=== PATIENT | female | born 1965 | race Caucasian/White ===

== ENCOUNTER → 2016-07-13 | Outpatient (CLI) | payer MEDICARE, MEDICAID ==
[~2016-07-13] MED LIST: ACET650S14 PR; AMIN30LI28 GT; ASCO500 GT; AUD NEB; BACIO TP; BACL10TA PO; BISA10S PR; BUDE0.5A3 NEB; CALC500O PEG; CALCIUM CARB SUSP PEG; DIGO125T GT; ESOM40SU GT; FAMO20 PO; FE PR; HYDR-3965 PO; HYDR25TA PO; IPRA3AMP4 NEB; LEVE500S2 GT; LEVO250 PEG; METO25 PO; MIRALAX PO; MULT-1203 PO; MULT240L12 GT; TIZA4TAB4 PO; VALP250S5 PEG
[2016-07-13 10:59] VITALS: BP 137/98
== END | disposition home or self-care (01) ==
LOC: SRCNTR 10:58
PROVIDERS: ATTEND Internal Medicine Critical Care Medicine
DX: I50.9 Heart failure, unspecified (principal); J18.9 Pneumonia, unspecified organism; G80.9 Cerebral palsy, unspecified; G82.50 Quadriplegia, unspecified; J45.21 Mild intermittent asthma with (acute) exacerbation; F73 Profound intellectual disabilities
CPT/HCPCS: G0463

== ENCOUNTER 2016-07-21 09:49 | Emergency (ER) | payer MEDICARE, MEDICAID ==
[~2016-07-21] VITALS: Ht 119.4 cm; Wt 45.0 kg
[~2016-07-21 09:49] MED LIST changes: -CALC500O PEG; -ESOM40SU GT; -FAMO20 PO; -HYDR-3965 PO; -LEVO250 PEG; -MIRALAX PO; -MULT240L12 GT; -TIZA4TAB4 PO
[2016-07-21] MEDS ORDERED: DIATRIZOATE MEGLU/SOD 660/100 MG/ML 120 ML BOTTLE ONE (11:53)
[2016-07-21 12:26] VITALS: BP 122/93
[2016-11-09] MEDS ORDERED: MULT240L12 GT (11:17)
[2016-11-09] MEDS ORDERED: TIZA4TAB4 PO (11:17)
[2016-11-09] MEDS ORDERED: FAMO20 PO (11:17)
[2016-11-09] MEDS ORDERED: MIRALAX PO (11:17)
== END 2016-07-21 13:29 | disposition home or self-care (01) ==
LOC: EMS 09:52
DX: K94.23 Gastrostomy malfunction (principal); Z86.73 Personal history of transient ischemic attack (TIA), and cerebral infarction without residual deficits; Z88.1 Allergy status to other antibiotic agents; Z88.6 Allergy status to analgesic agent; Z88.8 Allergy status to other drugs, medicaments and biological substances
CPT/HCPCS: 43760; 49450; 99283; Q9963

== ENCOUNTER → 2016-07-25 | Outpatient (CLI) | payer MEDICARE, MEDICAID ==
[~2016-07-25] MED LIST changes: +CALC500O PEG; +FAMO20 PO; +MIRALAX PO; +MULT240L12 GT; +TIZA4TAB4 PO
[2016-07-25 16:27] LABS: BASOPHILS % (AUTO) 0.4 % (0.0-2.0); EOSINOPHILS % (AUTO) 1.9 % (1.0-6.0); HEMATOCRIT 48.5 % (36-46); HEMOGLOBIN 16.1 g/dL (12.0-16.0); LYMPHOCYTES # (AUTO) 2.4 K/uL (1.0-4.8); LYMPHOCYTES % (AUTO) 16.6 % (22.0-44.0); MEAN CORPUSCULAR HEMOGLOBIN 32.3 pg (26.0-34.0); MEAN CORPUSCULAR HGB CONC 33.1 G/dL (31.0-37.0); MEAN CORPUSCULAR VOLUME 97 fL (80-100); MONOCYTES # (AUTO) 1.6 K/uL (0.1-1.0); MONOCYTES % (AUTO) 10.6 % (2.0-9.0); NEUTROPHILS # (AUTO) 10.4 K/uL (1.8-7.7); NEUTROPHILS % (AUTO) 70.5 % (40.0-70.0); PLATELET COUNT (AUTO) 215 K/uL (150-450); RED BLOOD CELL COUNT(AUTO) 4.98 MIL/uL (4.00-5.20); RED CELL DISTRIBUTION WIDTH 13.5 % (11.5-14.5); WHITE BLOOD COUNT (AUTO) 14.7 K/uL (4.5-11.0)
[2016-07-25 17:06] LABS: ALANINE AMINOTRANSFERASE 20 U/L (12-78); ALBUMIN 3.6 g/dL (3.4-5.0); ANION GAP 2 mmol/L (8-16); ASPARTATE AMINOTRANSFERASE 14 U/L (15-37); BILIRUBIN,TOTAL 0.6 mg/dL (0.1-1.0); CARBON DIOXIDE 31 mmol/L (22-29); CHLORIDE 95 mmol/L (98-107); CHOL/HDL RATIO 5.5 (3.9-5.7); CREATININE 0.51 mg/dL (0.60-1.30); DIGOXIN 0.76 ng/mL (0.90-2.00); GLOMERULAR FILTR. RATE CALC > 60 mL/min (>60); POTASSIUM 3.5 mmol/L (3.5-5.1); SODIUM SERUM 128 mmol/L (136-145); THYROID STIMULATING HORMONE 1.62 uIU/mL (0.36-3.74); TOTAL PROTEIN, SERUM 7.8 g/dL (6.4-8.2); UREA NITROGEN, BLOOD 18 mg/dL (7-18)
[2016-07-25 17:25] LABS: HEMOGLOBIN A1C 5.2 % (4.5-6.2)
== END | disposition home or self-care (01) ==
LOC: MSR 12:49
PROVIDERS: ATTEND Internal Medicine Cardiovascular Disease
DX: J18.9 Pneumonia, unspecified organism (principal); I10 Essential (primary) hypertension; I50.9 Heart failure, unspecified; R91.8 Other nonspecific abnormal finding of lung field; M41.80 Other forms of scoliosis, site unspecified
CPT/HCPCS: 82306; 83036; 84439; 84443

== ENCOUNTER → 2016-09-11 | Outpatient (CLI) | payer MEDICARE, MEDICAID ==
[2016-09-11 12:42] VITALS: BP 122/67
== END | disposition home or self-care (01) ==
LOC: SRCNTR 12:38
PROVIDERS: ATTEND Internal Medicine Critical Care Medicine
DX: J18.9 Pneumonia, unspecified organism (principal); G80.9 Cerebral palsy, unspecified; G82.50 Quadriplegia, unspecified; J45.21 Mild intermittent asthma with (acute) exacerbation; I50.9 Heart failure, unspecified; F73 Profound intellectual disabilities
CPT/HCPCS: G0463

== ENCOUNTER 2016-10-12 08:43 | Inpatient (IN) | payer MEDICARE, MEDICAID ==
[~2016-10-12] VITALS: Ht 121.9 cm; Wt 46.5 kg
[~2016-10-12 08:43] MED LIST changes: -CALC500O PEG; -FAMO20 PO; -MIRALAX PO; -MULT240L12 GT; -TIZA4TAB4 PO
[2016-10-12] MEDS ORDERED: MINERAL OIL 133 ML ENEMA PR ONE (09:15)
[2016-10-12] MEDS ORDERED: BARIUM SULFATE 0.1% SUSPENSION 450 ML BOTTLE GT ONE (09:15)
[2016-10-12 09:30] LABS: BASOPHILS # (AUTO) 0.01 K/uL (0.00-0.20); BASOPHILS % (AUTO) 0.1 % (0.0-2.0); EOSINOPHILS # (AUTO) 0.17 K/uL (0.00-0.70); EOSINOPHILS % (AUTO) 1.71 % (1.0-6.0); HEMATOCRIT 44.8 % (36-46); HEMOGLOBIN 14.8 g/dL (12.0-16.0); LYMPHOCYTES # (AUTO) 2.2 K/uL (1.0-4.8); LYMPHOCYTES % (AUTO) 21.6 % (22.0-44.0); MEAN CORPUSCULAR HEMOGLOBIN 31.9 pg (26.0-34.0); MEAN CORPUSCULAR VOLUME 97 fL (80-100); MONOCYTES # (AUTO) 1.5 K/uL (0.1-1.0); MONOCYTES % (AUTO) 14.2 % (2.0-9.0); NEUTROPHILS # (AUTO) 6.4 K/uL (1.8-7.7); NEUTROPHILS % (AUTO) 62.5 % (40.0-70.0); PLATELET COUNT (AUTO) 197 K/uL (150-450); RED BLOOD CELL COUNT(AUTO) 4.63 MIL/uL (4.00-5.20); RED CELL DISTRIBUTION WIDTH 13.8 % (11.5-14.5); WHITE BLOOD COUNT (AUTO) 10.3 K/uL (4.5-11.0)
[2016-10-12 09:39] LABS: ANION GAP 5 mmol/L (8-16); CALCIUM, TOTAL 9.3 mg/dL (8.8-10.5); CARBON DIOXIDE 35 mmol/L (22-29); CHLORIDE 102 mmol/L (98-107); CREATININE 0.48 mg/dL (0.60-1.30); GLOMERULAR FILTR. RATE CALC > 60 mL/min (>60); POTASSIUM 4.1 mmol/L (3.5-5.1); SODIUM SERUM 142 mmol/L (136-145); UREA NITROGEN, BLOOD 20 mg/dL (7-18)
[2016-10-12 09:44] LABS: ALANINE AMINOTRANSFERASE 30 U/L (12-78); ASPARTATE AMINOTRANSFERASE 27 U/L (15-37); BILIRUBIN,TOTAL 0.4 mg/dL (0.1-1.0)
[2016-10-12] MEDS ORDERED: IOVERSOL 350 MG/ML 100 ML VIAL ONE (11:05)
[2016-10-12] MEDS ORDERED: SODIUM CHLORIDE 0.9% 100 ML ONE (11:05)
[2016-10-12] MEDS ORDERED: ONDANSETRON HCL 4 MG/2 ML VIAL IVP PRN ×2 (13:15→15:15)
[2016-10-12] MEDS ORDERED: BISACODYL 10 MG RECTAL RECTAL SUPPOSITORY PR PRN (15:15)
[2016-10-12] MEDS ORDERED: ZOLPIDEM TARTRATE 5 MG TABLET PO PRN (15:15)
[2016-10-12] MEDS ORDERED: MAGNESIUM HYDROXIDE SUSPENSION 30 ML UDCUP PO PRN (15:15)
[2016-10-12] MEDS ORDERED: HYDROCODONE/ACETAMINOPHEN 5-325 MG TABLET PO PRN (15:15)
[2016-10-12] MEDS ORDERED: LABETALOL HCL 5 MG/ML 20 ML VIAL IVP PRN (15:30)
[2016-10-12 16:13] VITALS: BP 133/80
[2016-10-12] MEDS ORDERED: SODIUM CHLORIDE 0.9% 500 ML IV ONE (16:47)
[2016-10-12] MEDS: HEPARIN SODIUM,PORCINE 5,000 UNITS/ML VIAL SQ SCH ×2 (16:51→23:55)
[2016-10-12] MEDS: LevETIRAcetam 500 MG in DEXTROSE 5%-WATER 100 ML IV SCH (16:51)
[2016-10-12] MEDS ORDERED: PEG 3350/NA SULF,BICARB,CL/KCL 4000 ML SOLUTION PO ONE (17:00)
[2016-10-12 19:42] VITALS: BP 133/102
[2016-10-12] MEDS: DOCUSATE SODIUM 100 MG CAPSULE PO SCH (20:05)
[2016-10-12] MEDS: METOCLOPRAMIDE HCL 5 MG/ML 2 ML VIAL IVP SCH (20:05)
[2016-10-12] MEDS: BACITRACIN 28.4 GM OINTMENT TP SCH ×2 (20:06→21:00)
[2016-10-12] MEDS: MORPHINE SULFATE 2 MG/ML SYRINGE IVP PRN (21:08)
[2016-10-13] VITALS (7 sets, daily range): BP systolic 110–130; BP diastolic 69–90
[2016-10-13] MEDS: MORPHINE SULFATE 2 MG/ML SYRINGE IVP PRN ×2 (01:56→19:28)
[2016-10-13] MEDS: LevETIRAcetam 500 MG in DEXTROSE 5%-WATER 100 ML IV SCH ×2 (03:48→14:55)
[2016-10-13] MEDS: BACITRACIN 28.4 GM OINTMENT TP SCH ×2 (09:00→20:25)
[2016-10-13] MEDS ORDERED: PANTOPRAZOLE SODIUM 40 MG DR TABLET PO SCH (09:00)
[2016-10-13] MEDS: METOCLOPRAMIDE HCL 5 MG/ML 2 ML VIAL IVP SCH ×2 (09:03→20:34)
[2016-10-13] MEDS: HEPARIN SODIUM,PORCINE 5,000 UNITS/ML VIAL SQ SCH ×3 (09:03→23:44)
[2016-10-13] MEDS: DOCUSATE SODIUM 100 MG CAPSULE PO SCH ×2 (09:03→20:34)
[2016-10-13] MEDS: DIGOXIN 250 MCG/ML 2 ML AMP IVP SCH (09:04)
[2016-10-13] MEDS: BISACODYL 10 MG RECTAL RECTAL SUPPOSITORY PR SCH (09:11)
[2016-10-13] MEDS ORDERED: SODIUM CHLORIDE 0.9% 1,000 ML IV SCH (12:30)
[2016-10-13] MEDS ORDERED: CALC500O PEG (12:31)
[2016-10-13] MEDS: ACETAMINOPHEN 325 MG TABLET PO PRN (23:44)
[2016-10-14] MEDS ORDERED: 0.9% SODIUM CHLORIDE 5 ML NEB SOLUTION NEB ONE (00:14)
[2016-10-14] MEDS: ALBUTEROL SULFATE 2.5 MG/0.5 ML NEB SOLUTION NEB PRN (00:15)
[2016-10-14] MEDS ORDERED: FUROSEMIDE 40 MG/4 ML VIAL IVP ONE (01:15)
[2016-10-14] MEDS: LEVOFLOXACIN 500 MG/D5% WATER 100 ML IV SCH (01:59)
[2016-10-14 04:25] LABS: BASOPHILS % (AUTO) 0.1 % (0.0-2.0); EOSINOPHILS % (AUTO) 0.3 % (1.0-6.0); HEMATOCRIT 46.6 % (36-46); HEMOGLOBIN 15.4 g/dL (12.0-16.0); LYMPHOCYTES # (AUTO) 1.7 K/uL (1.0-4.8); LYMPHOCYTES % (AUTO) 8.4 % (22.0-44.0); MEAN CORPUSCULAR HEMOGLOBIN 31.8 pg (26.0-34.0); MEAN CORPUSCULAR HGB CONC 32.9 G/dL (31.0-37.0); MEAN CORPUSCULAR VOLUME 96 fL (80-100); MONOCYTES # (AUTO) 2.5 K/uL (0.1-1.0); MONOCYTES % (AUTO) 12.2 % (2.0-9.0); NEUTROPHILS # (AUTO) 16.3 K/uL (1.8-7.7); PLATELET COUNT (AUTO) 216 K/uL (150-450); RED BLOOD CELL COUNT(AUTO) 4.83 MIL/uL (4.00-5.20); RED CELL DISTRIBUTION WIDTH 13.1 % (11.5-14.5); WHITE BLOOD COUNT (AUTO) 20.6 K/uL (4.5-11.0)
[2016-10-14 04:27] LABS: ANION GAP 8 mmol/L (8-16); CALCIUM, TOTAL 9.5 mg/dL (8.8-10.5); CARBON DIOXIDE 31 mmol/L (22-29); CHLORIDE 100 mmol/L (98-107); CREATININE 0.67 mg/dL (0.60-1.30); GLOMERULAR FILTR. RATE CALC > 60 mL/min (>60); SODIUM SERUM 139 mmol/L (136-145); UREA NITROGEN, BLOOD 8 mg/dL (7-18)
[2016-10-14 04:32] VITALS: BP 133/91
[2016-10-14] MEDS: LevETIRAcetam 500 MG in DEXTROSE 5%-WATER 100 ML IV SCH ×2 (04:32→15:46)
[2016-10-14 04:36] LABS: POTASSIUM 2.8 mmol/L (3.5-5.1)
[2016-10-14] MEDS ORDERED: POTASSIUM CHL 10 MEQ/WATER 50 ML IV PRN (05:00)
[2016-10-14] MEDS ORDERED: POTASSIUM CHLORIDE 10% 40 MEQ/30 ML LIQUID UDCUP PEG PRN (05:00)
[2016-10-14] MEDS ORDERED: POTASSIUM CHLORIDE 10% 40 MEQ/30 ML LIQUID UDCUP PEG ONE (05:00)
[2016-10-14] MEDS ORDERED: 0.9% SODIUM CHLORIDE 10 ML SYRINGE IVP PRN (06:30)
[2016-10-14 07:53] VITALS: BP 130/86
[2016-10-14] MEDS: DIGOXIN 250 MCG/ML 2 ML AMP IVP SCH (08:18)
[2016-10-14] MEDS: METOCLOPRAMIDE HCL 5 MG/ML 2 ML VIAL IVP SCH ×2 (08:19→21:37)
[2016-10-14] MEDS: BACITRACIN 28.4 GM OINTMENT TP SCH ×2 (08:19→21:36)
[2016-10-14] MEDS: HEPARIN SODIUM,PORCINE 5,000 UNITS/ML VIAL SQ SCH ×2 (08:19→15:39)
[2016-10-14] MEDS: DOCUSATE SODIUM 100 MG CAPSULE PEG SCH ×2 (09:14→21:36)
[2016-10-14] MEDS: PANTOPRAZOLE SODIUM 40 MG/VIAL IVP SCH (09:14)
[2016-10-14] MEDS: CLINDAMYCIN PHOSPHATE 450 MG in DEXTROSE 5%-WATER 50 ML IV SCH ×2 (10:26→17:02)
[2016-10-14 11:20] VITALS: BP 135/92
[2016-10-14 12:15] LABS: ABG A-A DIFF O2 93.5 mmHg (10-20.0); ABG BASE EXCESS 7.4 mmol/L (-2.0-3.0); ABG HCO3 29.9 mmol/L (22.0-26.0); ABG OXYHEMOGLOBIN 93.9 % (94.0-100.0); ABG PCO2 49 mmHg (35-45); ABG PH 7.427 (7.35-7.450); TEMPERATURE, FAHRENHEIT, BG 99.2 FAHREN (96.0-98.6)
[2016-10-14 12:16] LABS: ALLEN TEST, BLOOD GAS Positive
[2016-10-14] MEDS: BISACODYL 10 MG RECTAL RECTAL SUPPOSITORY PR SCH (12:34)
[2016-10-14 13:25] LABS: APPEARANCE,URINE TURBID (CLEAR); GLUCOSE, URINE (UA) NEGATIVE (NEGATIVE); KETONES,URINE NEGATIVE (NEGATIVE); LEUKOCYTE ESTERASE ,URINE LARGE (NEGATIVE); OCCULT BLOOD,URINE LARGE (NEGATIVE); PH,URINE 5.5 (5.0-8.0); PROTEIN,URINE SEE CONFIRM (NEGATIVE)
[2016-10-14 13:50] LABS: ADD UA MICROSCOPIC YES
[2016-10-14 14:01] LABS: SULFOSALICYLIC ACID,URINE 3+ (Negative); WBC,URINE Full Field /HPF (0-5)
[2016-10-14 14:02] LABS: SQUAMOUS EPITHELIAL CELL,UR Few /LPF (None Seen)
[2016-10-14 15:36] VITALS: BP 123/83
[2016-10-14] MEDS: SODIUM CHLORIDE 0.9% 1,000 ML IV SCH (15:59)
[2016-10-14 19:26] VITALS: BP 150/93
[2016-10-14] MEDS: METOPROLOL TARTRATE 25 MG TABLET PO SCH (21:36)
[2016-10-14] MEDS: MetroNIDAZOLE 500 MG/NACL 100 ML IV SCH (22:56)
[2016-10-14 23:48] VITALS: BP 135/87
[2016-10-15] MEDS: HEPARIN SODIUM,PORCINE 5,000 UNITS/ML VIAL SQ SCH ×4 (00:30→23:40)
[2016-10-15] MEDS: LEVOFLOXACIN 500 MG/D5% WATER 100 ML IV SCH (01:21)
[2016-10-15] MEDS: LevETIRAcetam 500 MG in DEXTROSE 5%-WATER 100 ML IV SCH ×2 (04:06→15:23)
[2016-10-15 05:13] VITALS: BP 138/90
[2016-10-15] MEDS: MetroNIDAZOLE 500 MG/NACL 100 ML IV SCH ×3 (05:22→22:07)
[2016-10-15 06:42] LABS: ANION GAP 7 mmol/L (8-16); CALCIUM, TOTAL 9.1 mg/dL (8.8-10.5); CARBON DIOXIDE 33 mmol/L (22-29); CHLORIDE 103 mmol/L (98-107); CREATININE 0.55 mg/dL (0.60-1.30); GLOMERULAR FILTR. RATE CALC > 60 mL/min (>60); POTASSIUM 3.8 mmol/L (3.5-5.1); SODIUM SERUM 143 mmol/L (136-145); UREA NITROGEN, BLOOD 13 mg/dL (7-18)
[2016-10-15 06:44] LABS: BASOPHILS % (AUTO) 0.2 % (0.0-2.0); EOSINOPHILS % (AUTO) 1.8 % (1.0-6.0); HEMATOCRIT 45.2 % (36-46); HEMOGLOBIN 14.8 g/dL (12.0-16.0); LYMPHOCYTES % (AUTO) 9.1 % (22.0-44.0); MEAN CORPUSCULAR HGB CONC 32.9 G/dL (31.0-37.0); MEAN CORPUSCULAR VOLUME 97 fL (80-100); MONOCYTES # (AUTO) 1.7 K/uL (0.1-1.0); MONOCYTES % (AUTO) 14.7 % (2.0-9.0); NEUTROPHILS # (AUTO) 8.5 K/uL (1.8-7.7); NEUTROPHILS % (AUTO) 74.2 % (40.0-70.0); PLATELET COUNT (AUTO) 183 K/uL (150-450); RED BLOOD CELL COUNT(AUTO) 4.64 MIL/uL (4.00-5.20); RED CELL DISTRIBUTION WIDTH 13.2 % (11.5-14.5); WHITE BLOOD COUNT (AUTO) 11.5 K/uL (4.5-11.0)
[2016-10-15 08:18] VITALS: BP 138/97
[2016-10-15] MEDS: METOCLOPRAMIDE HCL 5 MG/ML 2 ML VIAL IVP SCH ×2 (08:22→21:04)
[2016-10-15] MEDS: PANTOPRAZOLE SODIUM 40 MG/VIAL IVP SCH (08:22)
[2016-10-15] MEDS: BISACODYL 10 MG RECTAL RECTAL SUPPOSITORY PR SCH (08:23)
[2016-10-15] MEDS: DOCUSATE SODIUM 100 MG CAPSULE PEG SCH ×2 (08:23→21:00)
[2016-10-15] MEDS: BACITRACIN 28.4 GM OINTMENT TP SCH ×2 (08:23→21:04)
[2016-10-15] MEDS: METOPROLOL TARTRATE 25 MG TABLET PO SCH ×2 (08:23→21:03)
[2016-10-15] MEDS: DIGOXIN 250 MCG/ML 2 ML AMP IVP SCH (08:37)
[2016-10-15] MEDS: SODIUM CHLORIDE 0.9% 1,000 ML IV SCH (08:41)
[2016-10-15 10:17] LABS: ABG A-A DIFF O2 72.2 mmHg (10-20.0); ABG BASE EXCESS 3.2 mmol/L (-2.0-3.0); ABG HCO3 26.7 mmol/L (22.0-26.0); ABG OXYHEMOGLOBIN 93.1 % (94.0-100.0); ABG PCO2 45 mmHg (35-45); ABG PH 7.406 (7.35-7.450)
[2016-10-15 10:18] LABS: ALLEN TEST, BLOOD GAS Positive; IPAP, BG 10 cm H2O
[2016-10-15 11:02] VITALS: BP 129/88
[2016-10-15 15:39] VITALS: BP 136/84
[2016-10-15] MEDS ORDERED: FUROSEMIDE 20 MG/2 ML VIAL IVP ONE (17:15)
[2016-10-15 19:37] VITALS: BP 144/94
[2016-10-16] VITALS (7 sets, daily range): BP systolic 138–162; BP diastolic 76–98
[2016-10-16] MEDS: LEVOFLOXACIN 500 MG/D5% WATER 100 ML IV SCH (01:48)
[2016-10-16] MEDS: LevETIRAcetam 500 MG in DEXTROSE 5%-WATER 100 ML IV SCH ×2 (03:13→16:18)
[2016-10-16] MEDS: MetroNIDAZOLE 500 MG/NACL 100 ML IV SCH ×3 (05:30→22:02)
[2016-10-16 08:51] LABS: BASOPHILS % (AUTO) 0.5 % (0.0-2.0); EOSINOPHILS % (AUTO) 2.1 % (1.0-6.0); HEMATOCRIT 46.4 % (36-46); HEMOGLOBIN 15.3 g/dL (12.0-16.0); LYMPHOCYTES # (AUTO) 1.6 K/uL (1.0-4.8); LYMPHOCYTES % (AUTO) 10.9 % (22.0-44.0); MEAN CORPUSCULAR HEMOGLOBIN 31.8 pg (26.0-34.0); MEAN CORPUSCULAR HGB CONC 32.9 G/dL (31.0-37.0); MEAN CORPUSCULAR VOLUME 97 fL (80-100); MONOCYTES # (AUTO) 1.7 K/uL (0.1-1.0); MONOCYTES % (AUTO) 11.6 % (2.0-9.0); NEUTROPHILS # (AUTO) 11.1 K/uL (1.8-7.7); NEUTROPHILS % (AUTO) 74.9 % (40.0-70.0); PLATELET COUNT (AUTO) 220 K/uL (150-450); RED CELL DISTRIBUTION WIDTH 13.1 % (11.5-14.5); WHITE BLOOD COUNT (AUTO) 14.9 K/uL (4.5-11.0)
[2016-10-16 09:00] LABS: ANION GAP 9 mmol/L (8-16); CALCIUM, TOTAL 9.5 mg/dL (8.8-10.5); CARBON DIOXIDE 31 mmol/L (22-29); CHLORIDE 100 mmol/L (98-107); CREATININE 0.57 mg/dL (0.60-1.30); GLOMERULAR FILTR. RATE CALC > 60 mL/min (>60); POTASSIUM 3.7 mmol/L (3.5-5.1); SODIUM SERUM 140 mmol/L (136-145); UREA NITROGEN, BLOOD 13 mg/dL (7-18)
[2016-10-16] MEDS: BISACODYL 10 MG RECTAL RECTAL SUPPOSITORY PR SCH (09:00)
[2016-10-16] MEDS: DOCUSATE SODIUM 100 MG CAPSULE PEG SCH ×2 (09:09→20:52)
[2016-10-16] MEDS: METOPROLOL TARTRATE 25 MG TABLET PO SCH ×2 (09:09→20:52)
[2016-10-16] MEDS: DIGOXIN 250 MCG/ML 2 ML AMP IVP SCH (09:10)
[2016-10-16] MEDS: ACETAMINOPHEN 325 MG TABLET PO PRN (09:16)
[2016-10-16] MEDS: METOCLOPRAMIDE HCL 5 MG/ML 2 ML VIAL IVP SCH ×2 (09:19→20:52)
[2016-10-16] MEDS: PANTOPRAZOLE SODIUM 40 MG/VIAL IVP SCH (09:23)
[2016-10-16] MEDS: HEPARIN SODIUM,PORCINE 5,000 UNITS/ML VIAL SQ SCH ×2 (09:24→16:18)
[2016-10-16] MEDS: BACITRACIN 28.4 GM OINTMENT TP SCH ×2 (09:25→20:52)
[2016-10-16 12:14] LABS: ABG A-A DIFF O2 63.8 mmHg (10-20.0); ABG BASE EXCESS 3.1 mmol/L (-2.0-3.0); ABG OXYHEMOGLOBIN 94.4 % (94.0-100.0); ABG PCO2 42 mmHg (35-45); ABG PH 7.435 (7.35-7.450); TEMPERATURE, FAHRENHEIT, BG 99.4 FAHREN (96.0-98.6)
[2016-10-16 12:16] LABS: ALLEN TEST, BLOOD GAS Positive
[2016-10-16] MEDS ORDERED: SODIUM CHLORIDE 0.9% 0 ML ONE (14:53)
[2016-10-16] MEDS: BUDESONIDE 0.5 MG/2 ML NEB SOLUTION NEB SCH (19:36)
[2016-10-16] MEDS: TRIMETH GT SCH (20:51)
[2016-10-16] MEDS: UDCUP GT SCH (20:51)
[2016-10-16] MEDS: SULFAMETHOX GT SCH (20:51)
[2016-10-16] MEDS ORDERED: SODIUM CHLORIDE 0.9% 100 ML ONE (21:57)
[2016-10-17] MEDS: HEPARIN SODIUM,PORCINE 5,000 UNITS/ML VIAL SQ SCH ×3 (01:02→16:48)
[2016-10-17] MEDS: LEVOFLOXACIN 500 MG/D5% WATER 100 ML IV SCH (02:10)
[2016-10-17] MEDS ORDERED: 0.9% SODIUM CHLORIDE 5 ML NEB SOLUTION NEB ONE (02:12)
[2016-10-17] MEDS: ALBUTEROL SULFATE 2.5 MG/0.5 ML NEB SOLUTION NEB PRN ×2 (02:14→08:26)
[2016-10-17] MEDS: LevETIRAcetam 500 MG in DEXTROSE 5%-WATER 100 ML IV SCH ×2 (04:11→16:48)
[2016-10-17 04:56] VITALS: BP 132/72
[2016-10-17] MEDS ORDERED: SODIUM CHLORIDE 0.9% 100 ML ONE (05:23)
[2016-10-17] MEDS: MetroNIDAZOLE 500 MG/NACL 100 ML IV SCH ×2 (05:42→14:36)
[2016-10-17 06:58] LABS: BASOPHILS % (AUTO) 0.3 % (0.0-2.0); EOSINOPHILS % (AUTO) 2.7 % (1.0-6.0); HEMATOCRIT 43.5 % (36-46); HEMOGLOBIN 14.4 g/dL (12.0-16.0); LYMPHOCYTES # (AUTO) 1.5 K/uL (1.0-4.8); LYMPHOCYTES % (AUTO) 10.4 % (22.0-44.0); MEAN CORPUSCULAR HEMOGLOBIN 31.9 pg (26.0-34.0); MEAN CORPUSCULAR HGB CONC 33.1 G/dL (31.0-37.0); MEAN CORPUSCULAR VOLUME 96 fL (80-100); MONOCYTES # (AUTO) 1.6 K/uL (0.1-1.0); MONOCYTES % (AUTO) 11.1 % (2.0-9.0); NEUTROPHILS # (AUTO) 11.1 K/uL (1.8-7.7); NEUTROPHILS % (AUTO) 75.5 % (40.0-70.0); PLATELET COUNT (AUTO) 208 K/uL (150-450); RED BLOOD CELL COUNT(AUTO) 4.52 MIL/uL (4.00-5.20); RED CELL DISTRIBUTION WIDTH 13.4 % (11.5-14.5); WHITE BLOOD COUNT (AUTO) 14.6 K/uL (4.5-11.0)
[2016-10-17 07:27] VITALS: BP 137/77
[2016-10-17 07:44] LABS: ANION GAP 7 mmol/L (8-16); CALCIUM, TOTAL 9.2 mg/dL (8.8-10.5); CARBON DIOXIDE 30 mmol/L (22-29); CHLORIDE 101 mmol/L (98-107); CREATININE 0.54 mg/dL (0.60-1.30); GLOMERULAR FILTR. RATE CALC > 60 mL/min (>60); POTASSIUM 4.2 mmol/L (3.5-5.1); SODIUM SERUM 138 mmol/L (136-145); UREA NITROGEN, BLOOD 10 mg/dL (7-18)
[2016-10-17] MEDS: BUDESONIDE 0.5 MG/2 ML NEB SOLUTION NEB SCH (08:26)
[2016-10-17] MEDS: BISACODYL 10 MG RECTAL RECTAL SUPPOSITORY PR SCH (09:00)
[2016-10-17] MEDS: UDCUP GT SCH (09:11)
[2016-10-17] MEDS: TRIMETH GT SCH (09:11)
[2016-10-17] MEDS: SULFAMETHOX GT SCH (09:11)
[2016-10-17] MEDS: DIGOXIN 250 MCG/ML 2 ML AMP IVP SCH (09:11)
[2016-10-17] MEDS: BACITRACIN 28.4 GM OINTMENT TP SCH (09:12)
[2016-10-17] MEDS: PANTOPRAZOLE SODIUM 40 MG/VIAL IVP SCH (09:12)
[2016-10-17] MEDS: DOCUSATE SODIUM 100 MG CAPSULE PEG SCH (09:12)
[2016-10-17] MEDS: METOPROLOL TARTRATE 25 MG TABLET PO SCH (09:12)
[2016-10-17] MEDS: METOCLOPRAMIDE HCL 5 MG/ML 2 ML VIAL IVP SCH (09:12)
[2016-10-17 10:45] LABS: ABG BASE EXCESS 1.4 mmol/L (-2.0-3.0); ABG HCO3 25.2 mmol/L (22.0-26.0); ABG OXYHEMOGLOBIN 93.4 % (94.0-100.0); ABG PCO2 45 mmHg (35-45); ABG PH 7.387 (7.35-7.450)
[2016-10-17 10:47] LABS: ALLEN TEST, BLOOD GAS Positive
[2016-10-17 11:06] VITALS: BP 124/78
[2016-10-17 15:01] VITALS: BP 132/78
== END 2016-10-17 17:35 | DRG 871 ==
LOC: EMS 08:46 → 6N 13:42 → 5N 10-14 04:06
PROVIDERS: ADMIT Internal Medicine; ATTEND Internal Medicine
PROC: 5A09457 Assistance with Respiratory Ventilation, 24-96 Consecutive Hours, Continuous Positive Airway Pressure (ICD-10-PCS; principal; 2016-10-14)
DX: A41.9 Sepsis, unspecified organism (principal); G80.0 Spastic quadriplegic cerebral palsy; J69.0 Pneumonitis due to inhalation of food and vomit; J96.02 Acute respiratory failure with hypercapnia; K56.7 Ileus, unspecified; E44.0 Moderate protein-calorie malnutrition; F73 Profound intellectual disabilities; N39.0 Urinary tract infection, site not specified; I50.30 Unspecified diastolic (congestive) heart failure; I48.2 Chronic atrial fibrillation; G40.909 Epilepsy, unspecified, not intractable, without status epilepticus; K56.41 Fecal impaction; B96.20 Unspecified Escherichia coli [E. coli] as the cause of diseases classified elsewhere; B96.89 Other specified bacterial agents as the cause of diseases classified elsewhere; G40.409 Other generalized epilepsy and epileptic syndromes, not intractable, without status epilepticus; I11.0 Hypertensive heart disease with heart failure; J45.909 Unspecified asthma, uncomplicated; M41.9 Scoliosis, unspecified; Z79.1 Long term (current) use of non-steroidal anti-inflammatories (NSAID); Z79.51 Long term (current) use of inhaled steroids; Z79.899 Other long term (current) drug therapy; Z16.29 Resistance to other single specified antibiotic; Z88.0 Allergy status to penicillin; Z88.1 Allergy status to other antibiotic agents; Z88.6 Allergy status to analgesic agent; Z88.8 Allergy status to other drugs, medicaments and biological substances; Z68.31 Body mass index [BMI] 31.0-31.9, adult; Z86.73 Personal history of transient ischemic attack (TIA), and cerebral infarction without residual deficits; Z93.1 Gastrostomy status
CPT/HCPCS: 71250; 74000; 74177; 82805; 84132; 87040; 87081; 87086; 93005; 93306; 94640; 94660; 99285; C9113; J0712; J1160; J1644; J1940; J1956; J2270; J2765; J3490; J7030; J7040; J7050; J7060; S0077

== ENCOUNTER 2016-10-27 09:58 | Emergency (ER) | payer MEDICARE, MEDICAID ==
[~2016-10-27] VITALS: Ht 121.9 cm; Wt 43.2 kg
[~2016-10-27 09:58] MED LIST changes: +CALC500O PEG; -CALCIUM CARB SUSP PEG
[2016-10-27] MEDS ORDERED: SODIUM CHLORIDE 0.9% 1,000 ML IV ONE (11:45)
[2016-10-27 12:13] LABS: BASOPHILS # (AUTO) 0.03 K/uL (0.00-0.20); BASOPHILS % (AUTO) 0.2 % (0.0-2.0); EOSINOPHILS % (AUTO) 1.58 % (1.0-6.0); HEMOGLOBIN 15.7 g/dL (12.0-16.0); LYMPHOCYTES # (AUTO) 1.9 K/uL (1.0-4.8); LYMPHOCYTES % (AUTO) 14.8 % (22.0-44.0); MEAN CORPUSCULAR HEMOGLOBIN 32.3 pg (26.0-34.0); MEAN CORPUSCULAR HGB CONC 32.7 G/dL (31.0-37.0); MEAN CORPUSCULAR VOLUME 99 fL (80-100); MONOCYTES % (AUTO) 7.5 % (2.0-9.0); NEUTROPHILS # (AUTO) 9.7 K/uL (1.8-7.7); NEUTROPHILS % (AUTO) 75.9 % (40.0-70.0); PLATELET COUNT (AUTO) 279 K/uL (150-450); RED BLOOD CELL COUNT(AUTO) 4.85 MIL/uL (4.00-5.20); WHITE BLOOD COUNT (AUTO) 12.8 K/uL (4.5-11.0)
[2016-10-27 12:22] LABS: ANION GAP 3 mmol/L (8-16); CALCIUM, TOTAL 10.4 mg/dL (8.8-10.5); CARBON DIOXIDE 35 mmol/L (22-29); CHLORIDE 102 mmol/L (98-107); CREATININE 0.49 mg/dL (0.60-1.30); GLOMERULAR FILTR. RATE CALC > 60 mL/min (>60); POTASSIUM 3.8 mmol/L (3.5-5.1); SODIUM SERUM 140 mmol/L (136-145); UREA NITROGEN, BLOOD 16 mg/dL (7-18)
[2016-10-27] MEDS ORDERED: DIATRIZOATE MEGLU/SOD 660/100 MG/ML 120 ML BOTTLE ONE (12:26)
[2016-10-27 12:27] LABS: ALANINE AMINOTRANSFERASE 26 U/L (12-78); ALBUMIN 3.6 g/dL (3.4-5.0); ASPARTATE AMINOTRANSFERASE 18 U/L (15-37); BILIRUBIN,TOTAL 0.4 mg/dL (0.1-1.0); TOTAL PROTEIN, SERUM 7.8 g/dL (6.4-8.2)
[2016-10-27 12:28] LABS: PROTHROMBIN TIME 10.5 SEC (9.4-11.6)
[2016-10-27 13:45] VITALS: BP 145/55
== END 2016-10-27 14:35 | disposition home or self-care (01) ==
LOC: EMS 10:01
DX: Z43.1 Encounter for attention to gastrostomy (principal); G82.50 Quadriplegia, unspecified; G40.909 Epilepsy, unspecified, not intractable, without status epilepticus; Z88.8 Allergy status to other drugs, medicaments and biological substances; Z88.6 Allergy status to analgesic agent; Z88.1 Allergy status to other antibiotic agents
CPT/HCPCS: 36415; 49450; 80053; 85025; 85610; 96360; 96361; 99285; J7030; Q9963

== ENCOUNTER → 2016-11-09 | Outpatient (CLI) | payer MEDICARE, MEDICAID ==
[~2016-11-09] MED LIST changes: +FAMO20 PO; +MIRALAX PO; +MULT240L12 GT; +TIZA4TAB4 PO
[2016-11-09 11:06] VITALS: BP 123/78
== END | disposition home or self-care (01) ==
LOC: SRCNTR 10:56
PROVIDERS: ATTEND Internal Medicine Critical Care Medicine
DX: J18.9 Pneumonia, unspecified organism (principal); I50.30 Unspecified diastolic (congestive) heart failure; G80.9 Cerebral palsy, unspecified; J45.21 Mild intermittent asthma with (acute) exacerbation; F73 Profound intellectual disabilities; G40.409 Other generalized epilepsy and epileptic syndromes, not intractable, without status epilepticus; H54.8 Legal blindness, as defined in USA; Q02 Microcephaly
CPT/HCPCS: G0463

== ENCOUNTER → 2016-12-04 | Outpatient (CLI) | payer MEDICARE, MEDICAID | END | disposition home or self-care (01) | LOC: RADPV 09:02 | PROVIDERS: ATTEND Family Medicine | DX: Z13.820 Encounter for screening for osteoporosis (principal); M85.88 Other specified disorders of bone density and structure, other site | CPT/HCPCS: 77080 ==

== ENCOUNTER 2017-01-26 14:23 | Emergency (ER) | payer MEDICARE, MEDICAID ==
[~2017-01-26] VITALS: Ht 147.3 cm; Wt 63.0 kg
[2017-01-26] MEDS ORDERED: DIATRIZOATE MEGLU/SOD 660/100 MG/ML 120 ML BOTTLE ONE (15:01)
[2017-01-26 20:45] VITALS: BP 114/85
== END 2017-01-26 21:01 | disposition home or self-care (01) ==
LOC: EMS 14:26
DX: Z43.1 Encounter for attention to gastrostomy (principal); K43.9 Ventral hernia without obstruction or gangrene; Z86.73 Personal history of transient ischemic attack (TIA), and cerebral infarction without residual deficits; Z88.1 Allergy status to other antibiotic agents; Z88.6 Allergy status to analgesic agent
CPT/HCPCS: 49440; 99284; Q9963

== ENCOUNTER 2017-03-12 16:47 | Inpatient (IN) | payer MEDICARE, MEDICAID ==
[~2017-03-12] VITALS: Ht 127 cm; Wt 46.8 kg
[2017-03-12] MEDS ORDERED: 0.9% SODIUM CHLORIDE 10 ML SYRINGE IVP PRN ×2 (17:15→20:30)
[2017-03-12] MEDS ORDERED: POTA20IV GT (17:31)
[2017-03-12] MEDS ORDERED: MOM30 PO (17:31)
[2017-03-12] MEDS ORDERED: MULT-723 GT (17:31)
[2017-03-12] MEDS ORDERED: FLUT16H NASAL (17:31)
[2017-03-12] MEDS ORDERED: GUAIFDM PO (17:31)
[2017-03-12] MEDS ORDERED: OXYM30SP27 NASAL (17:31)
[2017-03-12] MEDS ORDERED: VITAD1000 PO (17:31)
[2017-03-12] MEDS ORDERED: DIPH25 PO (17:31)
[2017-03-12] MEDS ORDERED: OLOP2.5D OU (17:31)
[2017-03-12 17:48] LABS: BASOPHILS % (AUTO) 0.4 % (0.0-2.0); EOSINOPHILS % (AUTO) 1.3 % (1.0-6.0); HEMATOCRIT 43.2 % (36-46); HEMOGLOBIN 14.8 g/dL (12.0-16.0); LYMPHOCYTES # (AUTO) 1.5 K/uL (1.0-4.8); LYMPHOCYTES % (AUTO) 10.7 % (22.0-44.0); MEAN CORPUSCULAR HEMOGLOBIN 33.1 pg (26.0-34.0); MEAN CORPUSCULAR HGB CONC 34.3 G/dL (31.0-37.0); MEAN CORPUSCULAR VOLUME 96 fL (80-100); MONOCYTES # (AUTO) 1.8 K/uL (0.1-1.0); MONOCYTES % (AUTO) 12.6 % (2.0-9.0); NEUTROPHILS # (AUTO) 10.6 K/uL (1.8-7.7); PLATELET COUNT (AUTO) 165 K/uL (150-450); RED BLOOD CELL COUNT(AUTO) 4.48 MIL/uL (4.00-5.20); RED CELL DISTRIBUTION WIDTH 13.2 % (11.5-14.5); WHITE BLOOD COUNT (AUTO) 14.2 K/uL (4.5-11.0)
[2017-03-12 17:57] LABS: ANION GAP 7 mmol/L (8-16); CALCIUM, TOTAL 10.1 mg/dL (8.8-10.5); CARBON DIOXIDE 33 mmol/L (22-29); CHLORIDE 99 mmol/L (98-107); GLOMERULAR FILTR. RATE CALC > 60 mL/min (>60); POTASSIUM 3.2 mmol/L (3.5-5.1); SODIUM SERUM 139 mmol/L (136-145); UREA NITROGEN, BLOOD 17 mg/dL (7-18)
[2017-03-12 17:58] LABS: PROTHROMBIN TIME 10.7 SEC (9.4-11.6)
[2017-03-12 18:13] LABS: B-TYPE NATRIURETIC PEPTIDE 7 pg/mL (0-100)
[2017-03-12 18:22] LABS: ALANINE AMINOTRANSFERASE 21 U/L (12-78); ALBUMIN 3.6 g/dL (3.4-5.0); ASPARTATE AMINOTRANSFERASE 22 U/L (15-37); BILIRUBIN,TOTAL 0.3 mg/dL (0.1-1.0); CREATINE KINASE MB 1.4 ng/mL (0-5); CREATINE KINASE, TOTAL 194 U/L (26-192); TOTAL PROTEIN, SERUM 8.1 g/dL (6.4-8.2)
[2017-03-12] MEDS ORDERED: MethylPREDNISolone SOD SUCC 125 MG/2 ML VIAL IVP ONE (18:30)
[2017-03-12] MEDS ORDERED: ALBUTEROL SULFATE 2.5 MG/0.5 ML NEB SOLUTION NEB ONE (18:30)
[2017-03-12] MEDS ORDERED: IPRATROPIUM BROMIDE 0.5 MG/2.5 ML NEB SOLUTION NEB ONE (18:30)
[2017-03-12 19:12] LABS: GLUCOSE, URINE (UA) NEGATIVE (NEGATIVE); KETONES,URINE NEGATIVE (NEGATIVE); LEUKOCYTE ESTERASE ,URINE LARGE (NEGATIVE); OCCULT BLOOD,URINE LARGE (NEGATIVE); PROTEIN,URINE TRACE (NEGATIVE)
[2017-03-12 19:13] LABS: ADD UA MICROSCOPIC YES; APPEARANCE,URINE CLOUDY (CLEAR)
[2017-03-12 19:22] LABS: SQUAMOUS EPITHELIAL CELL,UR Few /LPF (None Seen); WBC,URINE >100 /HPF (0-5)
[2017-03-12] MEDS ORDERED: ACETAMINOPHEN 325 MG TABLET PO PRN ×2 (20:30→21:45)
[2017-03-12] MEDS ORDERED: ONDANSETRON HCL 4 MG/2 ML VIAL IVP PRN (20:30)
[2017-03-12] MEDS ORDERED: VANCOMYCIN HCL 1 GM/D5% WATER 200 ML IV ONE (20:30)
[2017-03-12] MEDS ORDERED: LEVOFLOXACIN 500 MG/D5% WATER 100 ML IV ONE (20:30)
[2017-03-12] MEDS ORDERED: POTASSIUM CHLORIDE 20 MEQ ER TABLET PO ONE (21:30)
[2017-03-12] MEDS ORDERED: MAGNESIUM HYDROXIDE SUSPENSION 30 ML UDCUP PO PRN (21:45)
[2017-03-12] MEDS ORDERED: SODIUM CHLORIDE 0.9% 1,000 ML IV ONE (21:45)
[2017-03-12] MEDS ORDERED: BISACODYL 10 MG RECTAL RECTAL SUPPOSITORY PR PRN (21:45)
[2017-03-12] MEDS ORDERED: DEXTROSE 50%-WATER 25 GM/50 ML SYRINGE IVP PRN (22:00)
[2017-03-12] MEDS ORDERED: POTASSIUM CHL 10 MEQ/WATER 50 ML IV PRN (22:00)
[2017-03-12] MEDS ORDERED: POTASSIUM CHLORIDE 20 MEQ ER TABLET PO PRN (22:00)
[2017-03-12] MEDS ORDERED: LORazepam 2 MG/ML VIAL IVP PRN (22:00)
[2017-03-12 22:09] VITALS: BP 131/88
[2017-03-12] MEDS ORDERED: SODIUM CHLORIDE 0.9% 250 ML IV ONE (22:09)
[2017-03-12] MEDS ORDERED: POTASSIUM CHLORIDE 10% 40 MEQ/30 ML LIQUID UDCUP PO ONE (22:15)
[2017-03-12] MEDS: METOPROLOL TARTRATE 25 MG TABLET PO SCH (22:27)
[2017-03-12] MEDS ORDERED: 0.9% SODIUM CHLORIDE 5 ML NEB SOLUTION NEB ONE (22:43)
[2017-03-12] MEDS: ALBUTEROL SULFATE 2.5 MG/0.5 ML NEB SOLUTION NEB SCH (22:56)
[2017-03-12] MEDS: IPRATROPIUM BROMIDE 0.5 MG/2.5 ML NEB SOLUTION NEB SCH (22:56)
[2017-03-12] MEDS: MethylPREDNISolone SOD SUCC 125 MG/2 ML VIAL IVP SCH (23:15)
[2017-03-12] MEDS: CefTRIAXone 1 GM/DEXTROSE 50 ML IV SCH (23:15)
[2017-03-13] MEDS ORDERED: HEPARIN SODIUM,PORCINE 5,000 UNITS/ML VIAL SQ SCH
[2017-03-13] MEDS ORDERED: ALBUTEROL SULFATE 2.5 MG/0.5 ML NEB SOLUTION NEB SCH (02:00)
[2017-03-13] MEDS ORDERED: IPRATROPIUM BROMIDE 0.5 MG/2.5 ML NEB SOLUTION NEB SCH (02:00)
[2017-03-13] MEDS: ALBUTEROL SULFATE 2.5 MG/0.5 ML NEB SOLUTION NEB SCH ×6 (03:26→23:20)
[2017-03-13] MEDS: IPRATROPIUM BROMIDE 0.5 MG/2.5 ML NEB SOLUTION NEB SCH ×6 (03:26→23:20)
[2017-03-13 04:05] VITALS: BP 146/87
[2017-03-13] MEDS: MethylPREDNISolone SOD SUCC 125 MG/2 ML VIAL IVP SCH ×3 (05:46→19:27)
[2017-03-13 06:14] LABS: EOSINOPHILS % (AUTO) 0 % (1.0-6.0); HEMATOCRIT 44.6 % (36-46); HEMOGLOBIN 15.5 g/dL (12.0-16.0); LYMPHOCYTES # (AUTO) 0.4 K/uL (1.0-4.8); LYMPHOCYTES % (AUTO) 3.8 % (22.0-44.0); MEAN CORPUSCULAR HEMOGLOBIN 33.6 pg (26.0-34.0); MEAN CORPUSCULAR HGB CONC 34.6 G/dL (31.0-37.0); MEAN CORPUSCULAR VOLUME 97 fL (80-100); MONOCYTES # (AUTO) 0.1 K/uL (0.1-1.0); MONOCYTES % (AUTO) 1.1 % (2.0-9.0); NEUTROPHILS # (AUTO) 10.2 K/uL (1.8-7.7); PLATELET COUNT (AUTO) 184 K/uL (150-450); RED CELL DISTRIBUTION WIDTH 13.2 % (11.5-14.5); WHITE BLOOD COUNT (AUTO) 10.7 K/uL (4.5-11.0)
[2017-03-13 06:44] LABS: ALANINE AMINOTRANSFERASE 24 U/L (12-78); ALBUMIN 3.5 g/dL (3.4-5.0); ANION GAP 10 mmol/L (8-16); ASPARTATE AMINOTRANSFERASE 19 U/L (15-37); BILIRUBIN,TOTAL 0.2 mg/dL (0.1-1.0); CALCIUM, TOTAL 9.7 mg/dL (8.8-10.5); CARBON DIOXIDE 31 mmol/L (22-29); CHLORIDE 103 mmol/L (98-107); CREATININE 0.53 mg/dL (0.60-1.30); GLOMERULAR FILTR. RATE CALC > 60 mL/min (>60); POTASSIUM 3.7 mmol/L (3.5-5.1); SODIUM SERUM 144 mmol/L (136-145); TOTAL PROTEIN, SERUM 8.3 g/dL (6.4-8.2); UREA NITROGEN, BLOOD 13 mg/dL (7-18)
[2017-03-13 06:50] LABS: NEUTROPHILS % (AUTO) 95.1 % (40.0-70.0)
[2017-03-13 07:58] VITALS: BP 156/75
[2017-03-13] MEDS: DOCUSATE SODIUM 100 MG CAPSULE PO SCH ×2 (08:50→20:58)
[2017-03-13] MEDS: BACLOFEN 10 MG TABLET PO SCH ×4 (08:51→20:57)
[2017-03-13] MEDS: PANTOPRAZOLE SODIUM 40 MG DR TABLET PO SCH (08:51)
[2017-03-13] MEDS: LevETIRAcetam 500 MG TABLET PO SCH ×2 (08:51→20:57)
[2017-03-13] MEDS: VALPROIC ACID 250 MG CAPSULE PO SCH ×2 (08:51→20:57)
[2017-03-13] MEDS: APIXABAN 5 MG TABLET PO SCH ×2 (08:51→20:57)
[2017-03-13] MEDS: METOPROLOL TARTRATE 25 MG TABLET PO SCH ×2 (08:52→20:57)
[2017-03-13 11:26] VITALS: BP 139/64
[2017-03-13 13:27] LABS: GLUCOSE,POINT OF CARE 134 MG/DL (70-110)
[2017-03-13 14:08] LABS: GLUCOSE,POINT OF CARE 153 MG/DL (70-110)
[2017-03-13 14:53] VITALS: BP 149/90
[2017-03-13 19:14] VITALS: BP 144/62
[2017-03-13 23:46] VITALS: BP 140/77
[2017-03-14] VITALS (8 sets, daily range): BP systolic 109–163; BP diastolic 38–116
[2017-03-14] MEDS: CefTRIAXone 1 GM/DEXTROSE 50 ML IV SCH ×2 (00:14→23:35)
[2017-03-14] MEDS: MethylPREDNISolone SOD SUCC 125 MG/2 ML VIAL IVP SCH ×5 (00:14→23:35)
[2017-03-14] MEDS: IPRATROPIUM BROMIDE 0.5 MG/2.5 ML NEB SOLUTION NEB SCH ×6 (03:41→23:08)
[2017-03-14] MEDS: ALBUTEROL SULFATE 2.5 MG/0.5 ML NEB SOLUTION NEB SCH ×6 (03:41→23:09)
[2017-03-14] MEDS: INSULIN ASPART 100 UNITS/ML SQ PRN ×2 (06:20→17:07)
[2017-03-14 07:17] LABS: GLUCOSE COMMENT 1 Received Meds; GLUCOSE,POINT OF CARE 141 MG/DL (70-110)
[2017-03-14 07:22] LABS: GLUCOSE COMMENT 1 Received Meds; GLUCOSE,POINT OF CARE 179 MG/DL (70-110)
[2017-03-14 07:22] LABS: GLUCOSE,POINT OF CARE 126 MG/DL (70-110)
[2017-03-14] MEDS: VALPROIC ACID 250 MG CAPSULE PO SCH ×2 (07:40→20:57)
[2017-03-14] MEDS: METOPROLOL TARTRATE 25 MG TABLET PO SCH ×2 (07:40→20:56)
[2017-03-14] MEDS: BACLOFEN 10 MG TABLET PO SCH ×4 (07:40→20:57)
[2017-03-14] MEDS: APIXABAN 5 MG TABLET PO SCH ×2 (07:40→20:57)
[2017-03-14] MEDS: LevETIRAcetam 500 MG TABLET PO SCH ×2 (07:40→20:57)
[2017-03-14] MEDS: DOCUSATE SODIUM 100 MG CAPSULE PO SCH ×2 (07:40→20:57)
[2017-03-14] MEDS: PANTOPRAZOLE SODIUM 40 MG DR TABLET PO SCH (07:40)
[2017-03-14] MEDS: OXYGEN THERAPY IH SCH ×2 (09:11→20:57)
[2017-03-14] MEDS ORDERED: SODIUM CHLORIDE 0.9% 100 ML ONE (23:21)
[2017-03-15] MEDS: INSULIN ASPART 100 UNITS/ML SQ PRN ×4 (01:45→18:15)
[2017-03-15] MEDS: IPRATROPIUM BROMIDE 0.5 MG/2.5 ML NEB SOLUTION NEB SCH ×6 (03:32→23:29)
[2017-03-15] MEDS: ALBUTEROL SULFATE 2.5 MG/0.5 ML NEB SOLUTION NEB SCH ×6 (03:32→23:29)
[2017-03-15 04:49] VITALS: BP 105/71
[2017-03-15] MEDS: MethylPREDNISolone SOD SUCC 125 MG/2 ML VIAL IVP SCH ×4 (06:13→23:51)
[2017-03-15] MEDS: DOCUSATE SODIUM 100 MG CAPSULE PO SCH ×2 (07:48→20:28)
[2017-03-15] MEDS: PANTOPRAZOLE SODIUM 40 MG DR TABLET PO SCH (07:48)
[2017-03-15] MEDS: METOPROLOL TARTRATE 25 MG TABLET PO SCH ×2 (07:49→20:27)
[2017-03-15] MEDS: APIXABAN 5 MG TABLET PO SCH ×2 (07:49→20:27)
[2017-03-15] MEDS: VALPROIC ACID 250 MG CAPSULE PO SCH ×2 (07:49→20:27)
[2017-03-15] MEDS: LevETIRAcetam 500 MG TABLET PO SCH ×2 (07:49→20:27)
[2017-03-15] MEDS: BACLOFEN 10 MG TABLET PO SCH ×4 (07:50→20:27)
[2017-03-15] MEDS: OXYGEN THERAPY IH SCH ×2 (07:50→19:33)
[2017-03-15 08:00] VITALS: BP 123/85
[2017-03-15 12:01] VITALS: BP 146/84
[2017-03-15 12:13] LABS: GLUCOSE,POINT OF CARE 192 MG/DL (70-110)
[2017-03-15 12:22] LABS: GLUCOSE COMMENT 1 Received Meds; GLUCOSE,POINT OF CARE 193 MG/DL (70-110)
[2017-03-15 12:22] LABS: GLUCOSE COMMENT 1 Received Meds; GLUCOSE,POINT OF CARE 176 MG/DL (70-110)
[2017-03-15 16:53] VITALS: BP 138/114
[2017-03-15 19:51] VITALS: BP 148/97
[2017-03-15] MEDS: CefTRIAXone 1 GM/DEXTROSE 50 ML IV SCH (23:50)
[2017-03-16] VITALS (7 sets, daily range): BP systolic 122–155; BP diastolic 65–92
[2017-03-16] MEDS: INSULIN ASPART 100 UNITS/ML SQ PRN ×3 (00:02→18:35)
[2017-03-16] MEDS: IPRATROPIUM BROMIDE 0.5 MG/2.5 ML NEB SOLUTION NEB SCH ×6 (03:33→23:31)
[2017-03-16] MEDS: ALBUTEROL SULFATE 2.5 MG/0.5 ML NEB SOLUTION NEB SCH ×6 (03:33→23:31)
[2017-03-16] MEDS: MethylPREDNISolone SOD SUCC 125 MG/2 ML VIAL IVP SCH ×3 (05:44→18:21)
[2017-03-16] MEDS: OXYGEN THERAPY IH SCH ×2 (07:00→20:52)
[2017-03-16] MEDS: PANTOPRAZOLE SODIUM 40 MG DR TABLET PO SCH ×2 (09:00→09:07)
[2017-03-16] MEDS: APIXABAN 5 MG TABLET PO SCH ×2 (09:05→20:53)
[2017-03-16] MEDS: VALPROIC ACID 250 MG CAPSULE PO SCH ×2 (09:05→20:53)
[2017-03-16] MEDS: METOPROLOL TARTRATE 25 MG TABLET PO SCH ×2 (09:05→20:53)
[2017-03-16] MEDS: DOCUSATE SODIUM 100 MG CAPSULE PO SCH ×2 (09:05→20:53)
[2017-03-16] MEDS: BACLOFEN 10 MG TABLET PO SCH ×4 (09:06→20:53)
[2017-03-16] MEDS: LevETIRAcetam 500 MG TABLET PO SCH ×2 (09:06→20:52)
[2017-03-16 09:56] LABS: GLUCOSE COMMENT 1 Received Meds; GLUCOSE,POINT OF CARE 166 MG/DL (70-110)
[2017-03-16 09:56] LABS: GLUCOSE COMMENT 1 Received Meds; GLUCOSE,POINT OF CARE 187 MG/DL (70-110)
[2017-03-16 10:12] LABS: GLUCOSE COMMENT 1 Received Meds; GLUCOSE,POINT OF CARE 190 MG/DL (70-110)
[2017-03-16 10:12] LABS: GLUCOSE COMMENT 1 Received Meds; GLUCOSE,POINT OF CARE 166 MG/DL (70-110)
[2017-03-16] MEDS: LANSOPRAZOLE 30 MG SOLUBLE TABLET PO SCH (12:15)
[2017-03-17] MEDS: CefTRIAXone 1 GM/DEXTROSE 50 ML IV SCH ×2 (00:48→23:29)
[2017-03-17] MEDS: MethylPREDNISolone SOD SUCC 125 MG/2 ML VIAL IVP SCH ×5 (00:48→23:29)
[2017-03-17] MEDS: ALBUTEROL SULFATE 2.5 MG/0.5 ML NEB SOLUTION NEB SCH ×6 (03:28→23:51)
[2017-03-17] MEDS: IPRATROPIUM BROMIDE 0.5 MG/2.5 ML NEB SOLUTION NEB SCH ×6 (03:28→23:52)
[2017-03-17 04:39] VITALS: BP 149/91
[2017-03-17] MEDS: LANSOPRAZOLE 30 MG SOLUBLE TABLET PO SCH (05:46)
[2017-03-17] MEDS: INSULIN ASPART 100 UNITS/ML SQ PRN ×4 (05:53→23:31)
[2017-03-17 07:27] VITALS: BP 131/84
[2017-03-17] MEDS: OXYGEN THERAPY IH SCH ×2 (07:49→19:08)
[2017-03-17] MEDS: LevETIRAcetam 500 MG TABLET PO SCH ×2 (08:30→20:30)
[2017-03-17] MEDS: BACLOFEN 10 MG TABLET PO SCH ×4 (08:30→20:30)
[2017-03-17] MEDS: METOPROLOL TARTRATE 25 MG TABLET PO SCH ×2 (08:30→20:29)
[2017-03-17] MEDS: DOCUSATE SODIUM 100 MG CAPSULE PO SCH ×2 (08:30→20:30)
[2017-03-17] MEDS: VALPROIC ACID 250 MG CAPSULE PO SCH ×2 (08:30→20:29)
[2017-03-17] MEDS: APIXABAN 5 MG TABLET PO SCH ×2 (08:30→20:30)
[2017-03-17 11:48] VITALS: BP 142/91
[2017-03-17 12:43] LABS: GLUCOSE COMMENT 1 Received Meds; GLUCOSE,POINT OF CARE 187 MG/DL (70-110)
[2017-03-17 15:48] VITALS: BP 152/82
[2017-03-17 18:22] LABS: ANION GAP 8 mmol/L (8-16); CALCIUM, TOTAL 9.7 mg/dL (8.8-10.5); CARBON DIOXIDE 32 mmol/L (22-29); CHLORIDE 101 mmol/L (98-107); CREATININE 0.57 mg/dL (0.60-1.30); GLOMERULAR FILTR. RATE CALC > 60 mL/min (>60); POTASSIUM 3.8 mmol/L (3.5-5.1); SODIUM SERUM 141 mmol/L (136-145); UREA NITROGEN, BLOOD 28 mg/dL (7-18)
[2017-03-17 18:27] LABS: ALANINE AMINOTRANSFERASE 26 U/L (12-78); ALBUMIN 3.3 g/dL (3.4-5.0); ASPARTATE AMINOTRANSFERASE 12 U/L (15-37); BILIRUBIN,TOTAL 0.2 mg/dL (0.1-1.0); TOTAL PROTEIN, SERUM 7.1 g/dL (6.4-8.2)
[2017-03-17 18:36] LABS: EOSINOPHILS % (AUTO) 0 % (1.0-6.0); LYMPHOCYTES % (AUTO) 7.1 % (22.0-44.0); MEAN CORPUSCULAR HEMOGLOBIN 32.9 pg (26.0-34.0); MEAN CORPUSCULAR HGB CONC 34.1 G/dL (31.0-37.0); MEAN CORPUSCULAR VOLUME 97 fL (80-100); MONOCYTES # (AUTO) 0.5 K/uL (0.1-1.0); MONOCYTES % (AUTO) 3.5 % (2.0-9.0); NEUTROPHILS # (AUTO) 12.2 K/uL (1.8-7.7); NEUTROPHILS % (AUTO) 89.4 % (40.0-70.0); PLATELET COUNT (AUTO) 197 K/uL (150-450); RBC MORPHOLOGY COMMENT NORMAL RBC MORPH; RED BLOOD CELL COUNT(AUTO) 4.87 MIL/uL (4.00-5.20); RED CELL DISTRIBUTION WIDTH 12.6 % (11.5-14.5); WHITE BLOOD COUNT (AUTO) 13.7 K/uL (4.5-11.0)
[2017-03-17 19:38] LABS: GLUCOSE COMMENT 1 Received Meds; GLUCOSE,POINT OF CARE 157 MG/DL (70-110)
[2017-03-17 19:43] VITALS: BP 153/88
[2017-03-17] MEDS ORDERED: SODIUM CHLORIDE 0.9% 100 ML ONE (23:27)
[2017-03-18 00:17] VITALS: BP 148/74
[2017-03-18 01:17] LABS: GLUCOSE COMMENT 1 Received Meds; GLUCOSE,POINT OF CARE 179 MG/DL (70-110)
[2017-03-18 01:17] LABS: GLUCOSE,POINT OF CARE 124 MG/DL (70-110)
[2017-03-18 01:17] LABS: GLUCOSE COMMENT 1 Received Meds; GLUCOSE,POINT OF CARE 179 MG/DL (70-110)
[2017-03-18] MEDS: IPRATROPIUM BROMIDE 0.5 MG/2.5 ML NEB SOLUTION NEB SCH ×6 (03:46→22:58)
[2017-03-18] MEDS: ALBUTEROL SULFATE 2.5 MG/0.5 ML NEB SOLUTION NEB SCH ×6 (03:46→22:58)
[2017-03-18 04:57] VITALS: BP 136/88
[2017-03-18] MEDS: LANSOPRAZOLE 30 MG SOLUBLE TABLET PO SCH (06:03)
[2017-03-18] MEDS: MethylPREDNISolone SOD SUCC 125 MG/2 ML VIAL IVP SCH ×3 (06:04→17:02)
[2017-03-18] MEDS: INSULIN ASPART 100 UNITS/ML SQ PRN ×3 (06:06→17:58)
[2017-03-18 06:37] LABS: BASOPHILS % (AUTO) 0.1 % (0.0-2.0); EOSINOPHILS % (AUTO) 0 % (1.0-6.0); HEMATOCRIT 47.4 % (36-46); HEMOGLOBIN 16.2 g/dL (12.0-16.0); LYMPHOCYTES # (AUTO) 0.8 K/uL (1.0-4.8); LYMPHOCYTES % (AUTO) 6.1 % (22.0-44.0); MEAN CORPUSCULAR HGB CONC 34.1 G/dL (31.0-37.0); MEAN CORPUSCULAR VOLUME 97 fL (80-100); MONOCYTES # (AUTO) 0.8 K/uL (0.1-1.0); MONOCYTES % (AUTO) 6.5 % (2.0-9.0); NEUTROPHILS # (AUTO) 11.2 K/uL (1.8-7.7); PLATELET COUNT (AUTO) 197 K/uL (150-450); RED CELL DISTRIBUTION WIDTH 12.9 % (11.5-14.5); WHITE BLOOD COUNT (AUTO) 12.9 K/uL (4.5-11.0)
[2017-03-18 06:54] LABS: NEUTROPHILS % (AUTO) 87.3 % (40.0-70.0)
[2017-03-18 07:26] LABS: ALANINE AMINOTRANSFERASE 21 U/L (12-78); ALBUMIN 3.1 g/dL (3.4-5.0); ANION GAP 8 mmol/L (8-16); ASPARTATE AMINOTRANSFERASE 9 U/L (15-37); BILIRUBIN,TOTAL 0.2 mg/dL (0.1-1.0); CALCIUM, TOTAL 9.4 mg/dL (8.8-10.5); CARBON DIOXIDE 33 mmol/L (22-29); CHLORIDE 99 mmol/L (98-107); CREATININE 0.58 mg/dL (0.60-1.30); GLOMERULAR FILTR. RATE CALC > 60 mL/min (>60); POTASSIUM 3.9 mmol/L (3.5-5.1); SODIUM SERUM 140 mmol/L (136-145); TOTAL PROTEIN, SERUM 6.9 g/dL (6.4-8.2); UREA NITROGEN, BLOOD 27 mg/dL (7-18)
[2017-03-18 08:14] VITALS: BP 129/88
[2017-03-18 08:33] LABS: GLUCOSE COMMENT 1 Received Meds; GLUCOSE,POINT OF CARE 177 MG/DL (70-110)
[2017-03-18 08:33] LABS: GLUCOSE COMMENT 1 Received Meds; GLUCOSE,POINT OF CARE 179 MG/DL (70-110)
[2017-03-18] MEDS: APIXABAN 5 MG TABLET PO SCH ×2 (08:57→20:34)
[2017-03-18] MEDS: VALPROIC ACID 250 MG CAPSULE PO SCH ×2 (08:57→20:34)
[2017-03-18] MEDS: DOCUSATE SODIUM 100 MG CAPSULE PO SCH ×2 (08:57→20:34)
[2017-03-18] MEDS: LevETIRAcetam 500 MG TABLET PO SCH ×2 (08:57→20:35)
[2017-03-18] MEDS: OXYGEN THERAPY IH SCH ×2 (08:58→20:34)
[2017-03-18] MEDS: BACLOFEN 10 MG TABLET PO SCH ×4 (08:58→20:34)
[2017-03-18] MEDS: METOPROLOL TARTRATE 25 MG TABLET PO SCH ×2 (09:01→20:35)
[2017-03-18 11:58] VITALS: BP 143/83
[2017-03-18 13:08] LABS: GLUCOSE,POINT OF CARE 170 MG/DL (70-110)
[2017-03-18 16:52] VITALS: BP 145/91
[2017-03-18 19:18] VITALS: BP 138/90
[2017-03-18 22:22] LABS: GLUCOSE COMMENT 1 Received Meds; GLUCOSE,POINT OF CARE 178 MG/DL (70-110)
[2017-03-19 00:15] VITALS: BP 129/95
[2017-03-19] MEDS: MethylPREDNISolone SOD SUCC 125 MG/2 ML VIAL IVP SCH ×5 (00:18→23:58)
[2017-03-19] MEDS: CefTRIAXone 1 GM/DEXTROSE 50 ML IV SCH ×2 (00:18→23:59)
[2017-03-19] MEDS: INSULIN ASPART 100 UNITS/ML SQ PRN ×4 (00:49→17:59)
[2017-03-19] MEDS: ALBUTEROL SULFATE 2.5 MG/0.5 ML NEB SOLUTION NEB SCH ×6 (03:03→23:03)
[2017-03-19] MEDS: IPRATROPIUM BROMIDE 0.5 MG/2.5 ML NEB SOLUTION NEB SCH ×6 (03:03→23:03)
[2017-03-19 03:17] LABS: GLUCOSE COMMENT 1 Received Meds; GLUCOSE,POINT OF CARE 199 MG/DL (70-110)
[2017-03-19 04:29] VITALS: BP 133/78
[2017-03-19] MEDS: LANSOPRAZOLE 30 MG SOLUBLE TABLET PO SCH (05:47)
[2017-03-19 07:09] LABS: EOSINOPHILS % (AUTO) 0 % (1.0-6.0); HEMATOCRIT 49.2 % (36-46); HEMOGLOBIN 16.3 g/dL (12.0-16.0); LYMPHOCYTES # (AUTO) 0.7 K/uL (1.0-4.8); MEAN CORPUSCULAR HEMOGLOBIN 32.6 pg (26.0-34.0); MEAN CORPUSCULAR HGB CONC 33.2 G/dL (31.0-37.0); MEAN CORPUSCULAR VOLUME 98 fL (80-100); MONOCYTES # (AUTO) 0.8 K/uL (0.1-1.0); MONOCYTES % (AUTO) 5.6 % (2.0-9.0); NEUTROPHILS # (AUTO) 13.1 K/uL (1.8-7.7); PLATELET COUNT (AUTO) 200 K/uL (150-450); RED BLOOD CELL COUNT(AUTO) 5.01 MIL/uL (4.00-5.20); RED CELL DISTRIBUTION WIDTH 12.8 % (11.5-14.5); WHITE BLOOD COUNT (AUTO) 14.7 K/uL (4.5-11.0)
[2017-03-19 07:47] VITALS: BP 126/79
[2017-03-19 07:48] LABS: GLUCOSE COMMENT 1 Received Meds; GLUCOSE,POINT OF CARE 184 MG/DL (70-110)
[2017-03-19 07:52] LABS: ALANINE AMINOTRANSFERASE 23 U/L (12-78); ALBUMIN 3.1 g/dL (3.4-5.0); ANION GAP 10 mmol/L (8-16); ASPARTATE AMINOTRANSFERASE 8 U/L (15-37); BILIRUBIN,TOTAL 0.2 mg/dL (0.1-1.0); CALCIUM, TOTAL 9.5 mg/dL (8.8-10.5); CARBON DIOXIDE 30 mmol/L (22-29); CHLORIDE 100 mmol/L (98-107); CREATININE 0.52 mg/dL (0.60-1.30); GLOMERULAR FILTR. RATE CALC > 60 mL/min (>60); POTASSIUM 3.9 mmol/L (3.5-5.1); SODIUM SERUM 140 mmol/L (136-145); TOTAL PROTEIN, SERUM 6.7 g/dL (6.4-8.2); UREA NITROGEN, BLOOD 22 mg/dL (7-18)
[2017-03-19] MEDS: OXYGEN THERAPY IH SCH ×2 (08:27→20:20)
[2017-03-19 08:47] LABS: NEUTROPHILS % (AUTO) 89.4 % (40.0-70.0); RBC MORPHOLOGY COMMENT NORMAL RBC MORPH
[2017-03-19] MEDS: BACLOFEN 10 MG TABLET PO SCH ×4 (08:47→20:22)
[2017-03-19] MEDS: LevETIRAcetam 500 MG TABLET PO SCH ×2 (08:47→20:23)
[2017-03-19] MEDS: APIXABAN 5 MG TABLET PO SCH ×2 (08:47→20:23)
[2017-03-19] MEDS: METOPROLOL TARTRATE 25 MG TABLET PO SCH (08:48)
[2017-03-19] MEDS: DOCUSATE SODIUM 100 MG CAPSULE PO SCH ×2 (08:48→20:26)
[2017-03-19] MEDS: VALPROIC ACID 250 MG CAPSULE PO SCH ×2 (08:48→20:22)
[2017-03-19] MEDS ORDERED: INFLUENZA VIRUS VACCINE QVS 2017-18 (3YR+)/PF 60 MCG/0.5 ML SYRINGE IM ONE (11:45)
[2017-03-19] MEDS ORDERED: ACETAMINOPHEN 650 MG RECTAL SUPPOSITORY PR PRN (13:00)
[2017-03-19] MEDS ORDERED: BUDESONIDE 0.5 MG/2 ML NEB SOLUTION NEB PRN (13:00)
[2017-03-19] MEDS ORDERED: MAGNESIUM HYDROXIDE SUSPENSION 30 ML UDCUP GT PRN (13:00)
[2017-03-19] MEDS ORDERED: BISACODYL 10 MG RECTAL RECTAL SUPPOSITORY PR PRN (13:00)
[2017-03-19] MEDS ORDERED: IPRATROPIUM BROMIDE 0.5 MG/2.5 ML NEB SOLUTION NEB PRN (13:30)
[2017-03-19] MEDS ORDERED: ALBUTEROL SULFATE 2.5 MG/0.5 ML NEB SOLUTION NEB PRN (13:30)
[2017-03-19] MEDS ORDERED: K1015L GT (13:31)
[2017-03-19] MEDS ORDERED: APIX5TAB PO (15:03)
[2017-03-19] MEDS ORDERED: AUD NEB (15:03)
[2017-03-19] MEDS ORDERED: CEFX1I IV (15:05)
[2017-03-19] MEDS ORDERED: DSS100 PO (15:06)
[2017-03-19] MEDS ORDERED: LEVE500T53 PO (15:07)
[2017-03-19] MEDS ORDERED: LANS30TA4 PO (15:07)
[2017-03-19] MEDS ORDERED: METO25 PO (15:08)
[2017-03-19] MEDS ORDERED: VALP250 PO (15:09)
[2017-03-19 15:55] VITALS: BP 131/90
[2017-03-19] MEDS: METOPROLOL TARTRATE 25 MG TABLET GT SCH ×2 (17:15→20:23)
[2017-03-19 19:23] LABS: GLUCOSE COMMENT 1 Received Meds; GLUCOSE,POINT OF CARE 184 MG/DL (70-110)
[2017-03-19 19:23] LABS: GLUCOSE COMMENT 1 Received Meds; GLUCOSE,POINT OF CARE 191 MG/DL (70-110)
[2017-03-19 19:51] VITALS: BP 158/95
[2017-03-19] MEDS: FAMOTIDINE 20 MG TABLET GT SCH (20:22)
[2017-03-19] MEDS: OXYMETAZOLINE HCL 0.05% 15 ML NASAL SPRAY NASAL SCH (20:24)
[2017-03-19] MEDS: TiZANidine HCL 4 MG TABLET GT SCH (20:24)
[2017-03-19] MEDS ORDERED: DiphenhydrAMINE HCL 25 MG/10 ML ELIXIR UDCUP GT SCH (21:00)
[2017-03-19] MEDS: AMINO ACIDS/PROTEIN HYDROLYS 30 ML TUBE GT SCH (21:00)
[2017-03-19 23:36] VITALS: BP 120/75
[2017-03-20] MEDS: INSULIN ASPART 100 UNITS/ML SQ PRN ×3 (00:31→12:23)
[2017-03-20] MEDS: ALBUTEROL SULFATE 2.5 MG/0.5 ML NEB SOLUTION NEB SCH ×4 (03:11→15:52)
[2017-03-20] MEDS: IPRATROPIUM BROMIDE 0.5 MG/2.5 ML NEB SOLUTION NEB SCH ×4 (03:11→15:52)
[2017-03-20 04:53] VITALS: BP 143/83
[2017-03-20] MEDS: MethylPREDNISolone SOD SUCC 125 MG/2 ML VIAL IVP SCH ×2 (05:52→12:17)
[2017-03-20] MEDS: LANSOPRAZOLE 30 MG SOLUBLE TABLET PO SCH (05:52)
[2017-03-20 06:37] LABS: BASOPHILS # (AUTO) 0.01 K/uL (0.00-0.20); EOSINOPHILS % (AUTO) 0 % (1.0-6.0); HEMATOCRIT 49.9 % (36-46); HEMOGLOBIN 16.9 g/dL (12.0-16.0); LYMPHOCYTES # (AUTO) 0.7 K/uL (1.0-4.8); LYMPHOCYTES % (AUTO) 4.7 % (22.0-44.0); MEAN CORPUSCULAR HEMOGLOBIN 32.7 pg (26.0-34.0); MEAN CORPUSCULAR HGB CONC 33.9 G/dL (31.0-37.0); MEAN CORPUSCULAR VOLUME 96 fL (80-100); MONOCYTES # (AUTO) 0.8 K/uL (0.1-1.0); MONOCYTES % (AUTO) 5.5 % (2.0-9.0); NEUTROPHILS # (AUTO) 12.9 K/uL (1.8-7.7); PLATELET COUNT (AUTO) 178 K/uL (150-450); RED BLOOD CELL COUNT(AUTO) 5.18 MIL/uL (4.00-5.20); RED CELL DISTRIBUTION WIDTH 12.7 % (11.5-14.5); WHITE BLOOD COUNT (AUTO) 14.4 K/uL (4.5-11.0)
[2017-03-20 06:39] LABS: NEUTROPHILS % (AUTO) 89.8 % (40.0-70.0)
[2017-03-20 07:08] LABS: ALANINE AMINOTRANSFERASE 36 U/L (12-78); ALBUMIN 3.2 g/dL (3.4-5.0); ANION GAP 5 mmol/L (8-16); ASPARTATE AMINOTRANSFERASE 15 U/L (15-37); BILIRUBIN,TOTAL 0.1 mg/dL (0.1-1.0); CALCIUM, TOTAL 9.6 mg/dL (8.8-10.5); CARBON DIOXIDE 34 mmol/L (22-29); CHLORIDE 101 mmol/L (98-107); CREATININE 0.55 mg/dL (0.60-1.30); GLOMERULAR FILTR. RATE CALC > 60 mL/min (>60); POTASSIUM 3.9 mmol/L (3.5-5.1); SODIUM SERUM 140 mmol/L (136-145); TOTAL PROTEIN, SERUM 6.7 g/dL (6.4-8.2); UREA NITROGEN, BLOOD 23 mg/dL (7-18)
[2017-03-20 08:01] VITALS: BP 150/80
[2017-03-20] MEDS: OXYGEN THERAPY IH SCH (08:57)
[2017-03-20] MEDS ORDERED: HYDROCHLOROTHIAZIDE 25 MG TABLET GT SCH (09:00)
[2017-03-20] MEDS: LevETIRAcetam 500 MG TABLET PO SCH (09:00)
[2017-03-20] MEDS: AMINO ACIDS/PROTEIN HYDROLYS 30 ML TUBE GT SCH (09:00)
[2017-03-20] MEDS ORDERED: ASCORBIC ACID 500 MG TABLET GT SCH (09:00)
[2017-03-20] MEDS ORDERED: CHOLECALCIFEROL (VIT D3) 1,000 UNITS TABLET GT SCH (09:00)
[2017-03-20] MEDS ORDERED: POLYETHYLENE GLYCOL 3350 17 GM PACKET GT SCH (09:00)
[2017-03-20] MEDS ORDERED: POTASSIUM CHLORIDE 10% 40 MEQ/30 ML LIQUID UDCUP GT SCH (09:00)
[2017-03-20] MEDS ORDERED: MULTIVITAMINS WITH MINERALS, THERAPEUTIC 15 ML UDCUP GT SCH (09:00)
[2017-03-20] MEDS ORDERED: OLOPATADINE HCL 0.1% 5 ML OPHTHALMIC SOLUTION OU SCH (09:00)
[2017-03-20] MEDS ORDERED: CALCIUM CARBONATE 500 MG CHEWABLE TABLET GT SCH (09:00)
[2017-03-20] MEDS: METOPROLOL TARTRATE 25 MG TABLET GT SCH (09:01)
[2017-03-20] MEDS: FAMOTIDINE 20 MG TABLET GT SCH (09:01)
[2017-03-20] MEDS: DOCUSATE SODIUM 100 MG CAPSULE PO SCH (09:02)
[2017-03-20] MEDS: TiZANidine HCL 4 MG TABLET GT SCH (09:03)
[2017-03-20] MEDS: BACLOFEN 10 MG TABLET PO SCH ×2 (09:03→12:18)
[2017-03-20] MEDS: OXYMETAZOLINE HCL 0.05% 15 ML NASAL SPRAY NASAL SCH (09:04)
[2017-03-20] MEDS: VALPROIC ACID 250 MG CAPSULE PO SCH (09:04)
[2017-03-20] MEDS: APIXABAN 5 MG TABLET PO SCH (09:04)
[2017-03-20 09:58] LABS: GLUCOSE COMMENT 1 Received Meds; GLUCOSE,POINT OF CARE 209 MG/DL (70-110)
[2017-03-20 09:58] LABS: GLUCOSE COMMENT 1 Received Meds; GLUCOSE,POINT OF CARE 174 MG/DL (70-110)
[2017-03-20 11:38] VITALS: BP 125/77
[2017-03-20 15:27] VITALS: BP 139/75
[2017-03-21] MEDS ORDERED: DIGOXIN 125 MCG TABLET GT SCH (09:00)
[2017-03-21 20:28] LABS: GLUCOSE COMMENT 1 Received Meds; GLUCOSE,POINT OF CARE 218 MG/DL (70-110)
== END 2017-03-20 17:25 | DRG 871 ==
LOC: EMS 16:49 → 5N 20:27
PROVIDERS: ADMIT Internal Medicine; ATTEND Internal Medicine
DX: A41.9 Sepsis, unspecified organism (principal); G80.0 Spastic quadriplegic cerebral palsy; J96.01 Acute respiratory failure with hypoxia; J69.0 Pneumonitis due to inhalation of food and vomit; E43 Unspecified severe protein-calorie malnutrition; J44.1 Chronic obstructive pulmonary disease with (acute) exacerbation; J45.901 Unspecified asthma with (acute) exacerbation; I48.2 Chronic atrial fibrillation; N39.0 Urinary tract infection, site not specified; I10 Essential (primary) hypertension; Z68.27 Body mass index [BMI] 27.0-27.9, adult; Z88.1 Allergy status to other antibiotic agents; Z88.5 Allergy status to narcotic agent; Z86.73 Personal history of transient ischemic attack (TIA), and cerebral infarction without residual deficits; Z82.3 Family history of stroke; Z79.899 Other long term (current) drug therapy; Z87.01 Personal history of pneumonia (recurrent)
CPT/HCPCS: 82962; 83605; 87040; 87081; 87086; 90471; 93005; 94640; 94799; 96365; 96375; 99285; J0696; J1956; J2060; J2930; J3370; J7030; J7050

== ENCOUNTER 2017-04-10 07:46 | Emergency (ER) | payer MEDICARE, MEDICAID ==
[~2017-04-10] VITALS: Ht 129.5 cm; Wt 44.9 kg
[~2017-04-10 07:46] MED LIST changes: +APIX5TAB PO; -BACIO TP; +CEFX1I IV; +DIPH25 PO; +DSS100 PO; +FLUT16H NASAL; +GUAIFDM PO; +K1015L GT; +LANS30TA4 PO; +LEVE500T53 PO; +MOM30 PO; -MULT-1203 PO; +MULT-723 GT; +OLOP2.5D OU; +OXYM30SP27 NASAL; +VALP250 PO; +VITAD1000 PO
[2017-04-10] MEDS ORDERED: DIATRIZOATE MEGLU/SOD 660/100 MG/ML 120 ML BOTTLE ONE (08:01)
[2017-04-10] MEDS ORDERED: TIZA4TAB4 PO (08:27)
[2017-04-10] MEDS ORDERED: PRED20 PO (08:27)
[2017-04-10] MEDS ORDERED: LIDOCAINE HCL/PF 1% 30 ML VIAL ONE (09:05)
[2017-04-10] MEDS ORDERED: IOHEXOL 240 MG/ML 50 ML VIAL ONE (09:07)
[2017-04-10 13:53] VITALS: BP 126/84
== END 2017-04-10 13:54 | disposition home or self-care (01) ==
LOC: EMS 07:46
DX: K94.23 Gastrostomy malfunction (principal); J45.909 Unspecified asthma, uncomplicated; Z88.1 Allergy status to other antibiotic agents; Z88.6 Allergy status to analgesic agent
CPT/HCPCS: 36245; 49440; 74000; 99285; J3490; Q9963; Q9966

== ENCOUNTER 2017-05-28 11:45 | Inpatient (IN) | payer MEDICARE, MEDICAID ==
[~2017-05-28] VITALS: Ht 121.9 cm; Wt 46.0 kg
[~2017-05-28 11:45] MED LIST changes: -AMIN30LI28 GT; -APIX5TAB PO; -ASCO500 GT; -BISA10S PR; -CEFX1I IV; -DIPH25 PO; -DSS100 PO; -GUAIFDM PO; -LANS30TA4 PO; -LEVE500T53 PO; -OXYM30SP27 NASAL; +PRED20 PO; -VALP250 PO; -VITAD1000 PO
[2017-05-28] MEDS ORDERED: IPRATROPIUM BROMIDE 0.5 MG/2.5 ML NEB SOLUTION NEB ONE (12:15)
[2017-05-28] MEDS ORDERED: ALBUTEROL SULFATE 5 MG/ML 20 ML NEB SOLN [BULK] NEB ONE (12:15)
[2017-05-28] MEDS ORDERED: DEXAMETHASONE SOD PHOS 4 MG/ML 5 ML VIAL IM ONE (12:15)
[2017-05-28] MEDS ORDERED: 0.9% SODIUM CHLORIDE 5 ML NEB SOLUTION NEB ONE (12:30)
[2017-05-28 13:54] LABS: BASOPHILS # (AUTO) 0.06 K/uL (0.00-0.20); BASOPHILS % (AUTO) 0.6 % (0.0-2.0); EOSINOPHILS # (AUTO) 0.33 K/uL (0.00-0.70); EOSINOPHILS % (AUTO) 3.43 % (1.0-6.0); HEMATOCRIT 41.2 % (36-46); HEMOGLOBIN 13.8 g/dL (12.0-16.0); LYMPHOCYTES # (AUTO) 1.5 K/uL (1.0-4.8); LYMPHOCYTES % (AUTO) 15.4 % (22.0-44.0); MEAN CORPUSCULAR HEMOGLOBIN 33.3 pg (26.0-34.0); MEAN CORPUSCULAR HGB CONC 33.5 G/dL (31.0-37.0); MEAN CORPUSCULAR VOLUME 99 fL (80-100); MONOCYTES # (AUTO) 1.3 K/uL (0.1-1.0); MONOCYTES % (AUTO) 13.1 % (2.0-9.0); NEUTROPHILS # (AUTO) 6.5 K/uL (1.8-7.7); NEUTROPHILS % (AUTO) 67.4 % (40.0-70.0); PLATELET COUNT (AUTO) 199 K/uL (150-450); RED BLOOD CELL COUNT(AUTO) 4.15 MIL/uL (4.00-5.20); RED CELL DISTRIBUTION WIDTH 13.9 % (11.5-14.5); WHITE BLOOD COUNT (AUTO) 9.7 K/uL (4.5-11.0)
[2017-05-28 14:10] LABS: ANION GAP 9 mmol/L (8-16); CALCIUM, TOTAL 9.9 mg/dL (8.8-10.5); CARBON DIOXIDE 31 mmol/L (22-29); CHLORIDE 96 mmol/L (98-107); CREATININE 0.45 mg/dL (0.60-1.30); GLOMERULAR FILTR. RATE CALC > 60 mL/min (>60); POTASSIUM 3.4 mmol/L (3.5-5.1); SODIUM SERUM 136 mmol/L (136-145); UREA NITROGEN, BLOOD 13 mg/dL (7-18)
[2017-05-28] MEDS ORDERED: LEVOFLOXACIN 500 MG/D5% WATER 100 ML IV ONE (14:15)
[2017-05-28] MEDS ORDERED: ACETAMINOPHEN 160 MG/5 ML SUSPENSION UDCUP PEG ONE (14:15)
[2017-05-28] MEDS ORDERED: SODIUM CHLORIDE 0.9% 1,000 ML IV ONE ×2 (14:15→15:15)
[2017-05-28 14:16] LABS: ALANINE AMINOTRANSFERASE 23 U/L (12-78); ALBUMIN 3.5 g/dL (3.4-5.0); ASPARTATE AMINOTRANSFERASE 22 U/L (15-37); BILIRUBIN,TOTAL 0.3 mg/dL (0.1-1.0); TOTAL PROTEIN, SERUM 7.4 g/dL (6.4-8.2)
[2017-05-28] MEDS ORDERED: MAGNESIUM HYDROXIDE SUSPENSION 30 ML UDCUP PO PRN (15:00)
[2017-05-28] MEDS ORDERED: ONDANSETRON HCL 4 MG/2 ML VIAL IVP PRN (15:00)
[2017-05-28] MEDS ORDERED: IPRATROPIUM BROMIDE 0.5 MG/2.5 ML NEB SOLUTION NEB PRN (15:00)
[2017-05-28] MEDS ORDERED: ACETAMINOPHEN 325 MG TABLET PO PRN (15:00)
[2017-05-28 15:12] LABS: INFLUENZA TYPE B NEGATIVE FOR TYPE B (NEGATIVE)
[2017-05-28] MEDS ORDERED: MAGNESIUM HYDROXIDE SUSPENSION 30 ML UDCUP PEG PRN (15:12)
[2017-05-28] MEDS ORDERED: ACETAMINOPHEN 325 MG TABLET PEG PRN (15:13)
[2017-05-28] MEDS ORDERED: LORazepam 2 MG/ML VIAL IVP PRN ×2 (15:15)
[2017-05-28] MEDS ORDERED: POTASSIUM CHLORIDE 20 MEQ ER TABLET PO PRN (15:15)
[2017-05-28 15:17] LABS: APPEARANCE,URINE CLEAR (CLEAR); GLUCOSE, URINE (UA) NEGATIVE (NEGATIVE); KETONES,URINE NEGATIVE (NEGATIVE); LEUKOCYTE ESTERASE ,URINE NEGATIVE (NEGATIVE); OCCULT BLOOD,URINE SMALL (NEGATIVE); PH,URINE 7.5 (5.0-8.0); PROTEIN,URINE NEGATIVE (NEGATIVE)
[2017-05-28 15:28] LABS: VALPROIC ACID 58 mcg/mL (50-100)
[2017-05-28 15:33] LABS: SQUAMOUS EPITHELIAL CELL,UR Few /LPF (None Seen); WBC,URINE 0-2 /HPF (0-5)
[2017-05-28 16:50] VITALS: BP 111/79
[2017-05-28] MEDS: HEPARIN SODIUM,PORCINE 5,000 UNITS/ML VIAL SQ SCH (20:17)
[2017-05-28] MEDS: DOCUSATE SODIUM 100 MG CAPSULE PO SCH (20:17)
[2017-05-28] MEDS: VALPROIC ACID 250 MG/5 ML SYRUP UDCUP PEG SCH (20:17)
[2017-05-28] MEDS: LevETIRAcetam 500 MG TABLET PEG SCH (20:17)
[2017-05-28 20:55] VITALS: BP 114/76
[2017-05-28] MEDS: POTASSIUM CHL 10 MEQ/WATER 50 ML IV PRN ×3 (21:11→23:46)
[2017-05-28 21:44] LABS: APPEARANCE,URINE CLEAR (CLEAR); GLUCOSE, URINE (UA) NEGATIVE (NEGATIVE); KETONES,URINE NEGATIVE (NEGATIVE); LEUKOCYTE ESTERASE ,URINE NEGATIVE (NEGATIVE); OCCULT BLOOD,URINE MODERATE (NEGATIVE); PH,URINE 7.5 (5.0-8.0); PROTEIN,URINE NEGATIVE (NEGATIVE)
[2017-05-28 21:48] LABS: ADD UA MICROSCOPIC YES
[2017-05-28 22:05] LABS: SQUAMOUS EPITHELIAL CELL,UR Few /LPF (None Seen); WBC,URINE None Seen /HPF (0-5)
[2017-05-28 23:30] VITALS: BP 124/76
[2017-05-29 03:37] VITALS: BP 120/78
[2017-05-29 06:24] LABS: BASOPHILS % (AUTO) 0.3 % (0.0-2.0); EOSINOPHILS % (AUTO) 0 % (1.0-6.0); HEMOGLOBIN 12.4 g/dL (12.0-16.0); LYMPHOCYTES % (AUTO) 13.2 % (22.0-44.0); MEAN CORPUSCULAR HGB CONC 34.4 G/dL (31.0-37.0); MEAN CORPUSCULAR VOLUME 99 fL (80-100); MONOCYTES # (AUTO) 1.2 K/uL (0.1-1.0); MONOCYTES % (AUTO) 16.9 % (2.0-9.0); NEUTROPHILS # (AUTO) 5.1 K/uL (1.8-7.7); NEUTROPHILS % (AUTO) 69.6 % (40.0-70.0); PLATELET COUNT (AUTO) 226 K/uL (150-450); RED BLOOD CELL COUNT(AUTO) 3.65 MIL/uL (4.00-5.20); RED CELL DISTRIBUTION WIDTH 13.8 % (11.5-14.5); WHITE BLOOD COUNT (AUTO) 7.3 K/uL (4.5-11.0)
[2017-05-29 06:56] LABS: ANION GAP 8 mmol/L (8-16); CALCIUM, TOTAL 9.3 mg/dL (8.8-10.5); CARBON DIOXIDE 29 mmol/L (22-29); CHLORIDE 106 mmol/L (98-107); CREATININE 0.38 mg/dL (0.60-1.30); GLOMERULAR FILTR. RATE CALC > 60 mL/min (>60); POTASSIUM 3.8 mmol/L (3.5-5.1); SODIUM SERUM 143 mmol/L (136-145); UREA NITROGEN, BLOOD 10 mg/dL (7-18)
[2017-05-29 08:00] VITALS: BP 132/91
[2017-05-29] MEDS: HEPARIN SODIUM,PORCINE 5,000 UNITS/ML VIAL SQ SCH ×2 (08:55→19:55)
[2017-05-29] MEDS: DOCUSATE SODIUM 100 MG CAPSULE PO SCH ×2 (08:55→19:54)
[2017-05-29] MEDS: CefTRIAXone 1 GM/DEXTROSE 50 ML IV SCH (08:55)
[2017-05-29] MEDS: PANTOPRAZOLE SODIUM 40 MG/VIAL IVP SCH (08:55)
[2017-05-29] MEDS: LevETIRAcetam 500 MG TABLET PEG SCH ×2 (08:55→19:54)
[2017-05-29] MEDS: VALPROIC ACID 250 MG/5 ML SYRUP UDCUP PEG SCH ×2 (08:55→19:54)
[2017-05-29] MEDS ORDERED: SODIUM CHLORIDE 0.9% 500 ML IV ONE (09:01)
[2017-05-29 13:26] VITALS: BP 150/83
[2017-05-29] MEDS: DEXTROSE 5%-0.45% SODIUM CHL 1,000 ML IV SCH (15:29)
[2017-05-29 16:14] VITALS: BP 136/66
[2017-05-29 19:31] VITALS: BP 135/89
[2017-05-29 23:29] VITALS: BP 135/82
[2017-05-30 04:20] VITALS: BP 131/85
[2017-05-30] MEDS: DEXTROSE 5%-0.45% SODIUM CHL 1,000 ML IV SCH ×2 (05:42→20:27)
[2017-05-30 07:15] VITALS: BP 103/59
[2017-05-30] MEDS ORDERED: DIATRIZOATE MEGLU/SOD 660/100 MG/ML 120 ML BOTTLE ONE (07:57)
[2017-05-30] MEDS: PANTOPRAZOLE SODIUM 40 MG/VIAL IVP SCH (08:49)
[2017-05-30] MEDS: CefTRIAXone 1 GM/DEXTROSE 50 ML IV SCH (08:49)
[2017-05-30] MEDS: VALPROIC ACID 250 MG/5 ML SYRUP UDCUP PEG SCH ×2 (09:03→20:14)
[2017-05-30] MEDS: LevETIRAcetam 500 MG TABLET PEG SCH ×2 (09:03→20:15)
[2017-05-30] MEDS: DOCUSATE SODIUM 100 MG CAPSULE PO SCH ×2 (09:03→20:15)
[2017-05-30] MEDS: HEPARIN SODIUM,PORCINE 5,000 UNITS/ML VIAL SQ SCH ×2 (09:03→20:15)
[2017-05-30 11:50] VITALS: BP 139/94
[2017-05-30 15:15] VITALS: BP 133/81
[2017-05-30 20:57] VITALS: BP 127/77
[2017-05-30 23:54] VITALS: BP 122/66
[2017-05-31 05:14] VITALS: BP 132/74
[2017-05-31 08:04] VITALS: BP 125/77
[2017-05-31] MEDS: CefTRIAXone 1 GM/DEXTROSE 50 ML IV SCH (08:18)
[2017-05-31] MEDS: PANTOPRAZOLE SODIUM 40 MG/VIAL IVP SCH (08:18)
[2017-05-31] MEDS ORDERED: LIDOCAINE HCL/PF 1% 5 ML VIAL ONE (10:25)
[2017-05-31] MEDS ORDERED: DIATRIZOATE MEGLU/SOD 660/100 MG/ML 120 ML BOTTLE ONE (10:25)
[2017-05-31 11:52] VITALS: BP 122/76
[2017-05-31] MEDS: HEPARIN SODIUM,PORCINE 5,000 UNITS/ML VIAL SQ SCH ×2 (12:48→21:00)
[2017-05-31] MEDS: DOCUSATE SODIUM 100 MG CAPSULE PO SCH ×2 (12:49→20:54)
[2017-05-31] MEDS: LevETIRAcetam 500 MG TABLET PEG SCH ×2 (12:49→20:54)
[2017-05-31] MEDS: VALPROIC ACID 250 MG/5 ML SYRUP UDCUP PEG SCH ×2 (12:49→20:54)
[2017-05-31] MEDS: ALBUTEROL SULFATE 2.5 MG/0.5 ML NEB SOLUTION NEB PRN ×2 (14:23→19:08)
[2017-05-31] MEDS ORDERED: IPRATROPIUM BROMIDE 0.5 MG/2.5 ML NEB SOLUTION NEB SCH (16:00)
[2017-05-31 16:13] VITALS: BP 126/77
[2017-05-31] MEDS: DEXTROSE 5%-0.45% SODIUM CHL 1,000 ML IV SCH (17:10)
[2017-05-31] MEDS: MethylPREDNISolone SOD SUCC 40 MG/ML VIAL IVP SCH (17:12)
[2017-05-31 20:06] VITALS: BP 119/86
[2017-05-31 23:11] VITALS: BP 138/73
[2017-05-31] MEDS: ALBUTEROL SULFATE 2.5 MG/0.5 ML NEB SOLUTION NEB SCH (23:38)
[2017-05-31] MEDS: IPRATROPIUM BROMIDE 0.5 MG/2.5 ML NEB SOLUTION NEB SCH (23:38)
[2017-06-01] MEDS: MethylPREDNISolone SOD SUCC 40 MG/ML VIAL IVP SCH ×4 (00:36→23:24)
[2017-06-01] MEDS: IPRATROPIUM BROMIDE 0.5 MG/2.5 ML NEB SOLUTION NEB SCH ×5 (03:10→20:51)
[2017-06-01] MEDS: ALBUTEROL SULFATE 2.5 MG/0.5 ML NEB SOLUTION NEB SCH ×5 (03:10→20:51)
[2017-06-01 04:48] VITALS: BP 138/96
[2017-06-01 06:57] LABS: EOSINOPHILS % (AUTO) 0 % (1.0-6.0); HEMATOCRIT 38.9 % (36-46); HEMOGLOBIN 13.6 g/dL (12.0-16.0); LYMPHOCYTES # (AUTO) 0.5 K/uL (1.0-4.8); LYMPHOCYTES % (AUTO) 8.9 % (22.0-44.0); MEAN CORPUSCULAR HEMOGLOBIN 33.7 pg (26.0-34.0); MEAN CORPUSCULAR HGB CONC 34.9 G/dL (31.0-37.0); MEAN CORPUSCULAR VOLUME 97 fL (80-100); MONOCYTES # (AUTO) 0.1 K/uL (0.1-1.0); NEUTROPHILS # (AUTO) 4.8 K/uL (1.8-7.7); PLATELET COUNT (AUTO) 264 K/uL (150-450); RED BLOOD CELL COUNT(AUTO) 4.03 MIL/uL (4.00-5.20); RED CELL DISTRIBUTION WIDTH 13.5 % (11.5-14.5); WHITE BLOOD COUNT (AUTO) 5.4 K/uL (4.5-11.0)
[2017-06-01 07:05] LABS: NEUTROPHILS % (AUTO) 89.1 % (40.0-70.0)
[2017-06-01 07:06] LABS: ANION GAP 10 mmol/L (8-16); CALCIUM, TOTAL 9.5 mg/dL (8.8-10.5); CARBON DIOXIDE 29 mmol/L (22-29); CHLORIDE 102 mmol/L (98-107); CREATININE 0.62 mg/dL (0.60-1.30); GLOMERULAR FILTR. RATE CALC > 60 mL/min (>60); SODIUM SERUM 141 mmol/L (136-145); UREA NITROGEN, BLOOD 8 mg/dL (7-18)
[2017-06-01 07:09] LABS: POTASSIUM 2.7 mmol/L (3.5-5.1)
[2017-06-01 07:45] VITALS: BP 138/84
[2017-06-01] MEDS: CefTRIAXone 1 GM/DEXTROSE 50 ML IV SCH (08:20)
[2017-06-01] MEDS: PANTOPRAZOLE SODIUM 40 MG/VIAL IVP SCH (08:20)
[2017-06-01] MEDS: DEXTROSE 5%-0.45% SODIUM CHL 1,000 ML IV SCH (08:49)
[2017-06-01] MEDS: POTASSIUM CHL 10 MEQ/WATER 50 ML IV PRN ×5 (08:51→23:24)
[2017-06-01] MEDS: LevETIRAcetam 500 MG TABLET PEG SCH ×2 (09:00→20:52)
[2017-06-01] MEDS: DOCUSATE SODIUM 100 MG CAPSULE PO SCH ×2 (09:00→20:53)
[2017-06-01] MEDS: VALPROIC ACID 250 MG/5 ML SYRUP UDCUP PEG SCH ×2 (09:00→20:52)
[2017-06-01] MEDS: HEPARIN SODIUM,PORCINE 5,000 UNITS/ML VIAL SQ SCH ×2 (10:30→21:27)
[2017-06-01 15:30] VITALS: BP 150/87
[2017-06-01] MEDS ORDERED: BARIUM SULFATE 0.1% SUSPENSION 450 ML BOTTLE ONE (18:52)
[2017-06-01] MEDS ORDERED: IOVERSOL 320 MG/ML 100 ML VIAL ONE (18:52)
[2017-06-01] MEDS ORDERED: SODIUM CHLORIDE 0.9% 100 ML ONE (18:52)
[2017-06-01 19:18] VITALS: BP 138/80
[2017-06-01] MEDS: METOCLOPRAMIDE HCL 5 MG/ML 2 ML VIAL IVP SCH (21:27)
[2017-06-01] MEDS ORDERED: SODIUM CHLORIDE 0.9% 500 ML IV ONE (21:28)
[2017-06-01 23:45] VITALS: BP 138/74
[2017-06-02] MEDS: ALBUTEROL SULFATE 2.5 MG/0.5 ML NEB SOLUTION NEB SCH ×7 (00:15→22:45)
[2017-06-02] MEDS: IPRATROPIUM BROMIDE 0.5 MG/2.5 ML NEB SOLUTION NEB SCH ×7 (00:16→22:45)
[2017-06-02] MEDS: DEXTROSE 5%-0.45% SODIUM CHL 1,000 ML IV SCH ×3 (01:08→20:24)
[2017-06-02] MEDS: POTASSIUM CHL 10 MEQ/WATER 50 ML IV PRN (01:08)
[2017-06-02] MEDS: MethylPREDNISolone SOD SUCC 40 MG/ML VIAL IVP SCH ×3 (05:12→18:13)
[2017-06-02 06:11] VITALS: BP 141/79
[2017-06-02 07:30] VITALS: BP 132/72
[2017-06-02] MEDS: DOCUSATE SODIUM 100 MG CAPSULE PO SCH ×2 (08:42→21:00)
[2017-06-02] MEDS: CefTRIAXone 1 GM/DEXTROSE 50 ML IV SCH (08:53)
[2017-06-02] MEDS: PANTOPRAZOLE SODIUM 40 MG/VIAL IVP SCH (08:54)
[2017-06-02] MEDS: METOCLOPRAMIDE HCL 5 MG/ML 2 ML VIAL IVP SCH ×2 (08:54→20:59)
[2017-06-02] MEDS: HEPARIN SODIUM,PORCINE 5,000 UNITS/ML VIAL SQ SCH ×2 (08:54→20:59)
[2017-06-02 11:34] VITALS: BP 138/79
[2017-06-02] MEDS: LevETIRAcetam 500 MG in DEXTROSE 5%-WATER 100 ML IV SCH ×2 (14:20→22:13)
[2017-06-02 15:29] VITALS: BP 133/80
[2017-06-02 20:43] VITALS: BP 139/75
[2017-06-02 23:48] VITALS: BP 136/78
[2017-06-03] MEDS: MethylPREDNISolone SOD SUCC 40 MG/ML VIAL IVP SCH ×4 (00:13→18:25)
[2017-06-03] MEDS: ALBUTEROL SULFATE 2.5 MG/0.5 ML NEB SOLUTION NEB SCH ×6 (03:14→23:47)
[2017-06-03] MEDS: IPRATROPIUM BROMIDE 0.5 MG/2.5 ML NEB SOLUTION NEB SCH ×6 (03:14→23:48)
[2017-06-03 05:47] VITALS: BP 148/97
[2017-06-03 08:23] VITALS: BP 132/76
[2017-06-03] MEDS: DOCUSATE SODIUM 100 MG CAPSULE PO SCH ×2 (09:00→20:23)
[2017-06-03] MEDS: CefTRIAXone 1 GM/DEXTROSE 50 ML IV SCH (10:32)
[2017-06-03] MEDS: PANTOPRAZOLE SODIUM 40 MG/VIAL IVP SCH (10:32)
[2017-06-03] MEDS: METOCLOPRAMIDE HCL 5 MG/ML 2 ML VIAL IVP SCH ×2 (10:33→20:23)
[2017-06-03] MEDS: HEPARIN SODIUM,PORCINE 5,000 UNITS/ML VIAL SQ SCH ×2 (10:54→20:22)
[2017-06-03] MEDS: LevETIRAcetam 500 MG in DEXTROSE 5%-WATER 100 ML IV SCH ×2 (11:24→22:21)
[2017-06-03] MEDS: DEXTROSE 5%-0.45% SODIUM CHL 1,000 ML IV SCH (11:29)
[2017-06-03 13:32] VITALS: BP 131/81
[2017-06-03 17:13] VITALS: BP 145/79
[2017-06-03 19:30] VITALS: BP 136/82
[2017-06-03 23:30] VITALS: BP 141/82
[2017-06-04] MEDS: DEXTROSE 5%-0.45% SODIUM CHL 1,000 ML IV SCH (00:15)
[2017-06-04] MEDS: MethylPREDNISolone SOD SUCC 40 MG/ML VIAL IVP SCH ×2 (00:15→05:36)
[2017-06-04 03:30] VITALS: BP 138/80
[2017-06-04] MEDS: IPRATROPIUM BROMIDE 0.5 MG/2.5 ML NEB SOLUTION NEB SCH ×4 (03:44→15:21)
[2017-06-04] MEDS: ALBUTEROL SULFATE 2.5 MG/0.5 ML NEB SOLUTION NEB SCH ×4 (03:44→15:21)
[2017-06-04 08:10] VITALS: BP 126/65
[2017-06-04] MEDS: CefTRIAXone 1 GM/DEXTROSE 50 ML IV SCH (08:30)
[2017-06-04] MEDS: METOCLOPRAMIDE HCL 5 MG/ML 2 ML VIAL IVP SCH (09:04)
[2017-06-04] MEDS: PANTOPRAZOLE SODIUM 40 MG/VIAL IVP SCH (09:04)
[2017-06-04] MEDS: DOCUSATE SODIUM 100 MG CAPSULE PO SCH (09:04)
[2017-06-04] MEDS: HEPARIN SODIUM,PORCINE 5,000 UNITS/ML VIAL SQ SCH (09:04)
[2017-06-04 11:25] VITALS: BP 133/72
[2017-06-04 15:40] VITALS: BP 128/87
== END 2017-06-04 18:45 | disposition home or self-care (01) | DRG 871 ==
LOC: EMS 11:48 → 6N 14:59
PROVIDERS: ADMIT Internal Medicine; ATTEND Internal Medicine
PROC: 0DH63UZ Insertion of Feeding Device into Stomach, Percutaneous Approach (ICD-10-PCS; principal; 2017-05-31)
DX: A41.9 Sepsis, unspecified organism (principal); J96.90 Respiratory failure, unspecified, unspecified whether with hypoxia or hypercapnia; G82.50 Quadriplegia, unspecified; R13.10 Dysphagia, unspecified; K56.7 Ileus, unspecified; K94.23 Gastrostomy malfunction; J44.1 Chronic obstructive pulmonary disease with (acute) exacerbation; Z66 Do not resuscitate; E87.6 Hypokalemia; R62.7 Adult failure to thrive; J44.9 Chronic obstructive pulmonary disease, unspecified; G40.909 Epilepsy, unspecified, not intractable, without status epilepticus; Z46.59 Encounter for fitting and adjustment of other gastrointestinal appliance and device; Z82.3 Family history of stroke; Z86.73 Personal history of transient ischemic attack (TIA), and cerebral infarction without residual deficits; Z88.8 Allergy status to other drugs, medicaments and biological substances; Z88.1 Allergy status to other antibiotic agents
CPT/HCPCS: 36245; 49450; 51702; 74000; 83605; 84132; 87040; 87081; 87804; 93005; 94640; 94644; 96365; 96372; 99291; C9113; J0696; J0712; J1100; J1644; J1956; J2060; J2765; J2920; J3480; J3490; J7030; J7040; J7050; J7060

== ENCOUNTER 2017-09-03 09:07 | Emergency (ER) | payer MEDICARE, MEDICAID ==
[~2017-09-03] VITALS: Ht 121.9 cm; Wt 42.4 kg
[2017-09-03] MEDS ORDERED: POTA20LI36 GT (10:05)
[2017-09-03] MEDS ORDERED: BUDE0.5A3 NEB (10:05)
[2017-09-03] MEDS ORDERED: DIGO-44 PO ×2 (10:05)
[2017-09-03] MEDS ORDERED: OLOP2.5D OU (10:05)
[2017-09-03] MEDS ORDERED: AMIN30LI28 GT (10:05)
[2017-09-03] MEDS ORDERED: TIZA2TAB4 GT (10:05)
[2017-09-03] MEDS ORDERED: MOM30 GT (10:05)
[2017-09-03] MEDS ORDERED: METO25 GT (10:05)
[2017-09-03] MEDS ORDERED: IPRA3AMP4 NEB (10:05)
[2017-09-03] MEDS ORDERED: HYDR25TA GT (10:05)
[2017-09-03] MEDS ORDERED: GUAI118S10 PO (10:05)
[2017-09-03] MEDS ORDERED: MIRALAX GT (10:05)
[2017-09-03] MEDS ORDERED: OMEG-135 GT (10:05)
[2017-09-03] MEDS ORDERED: SENN-175 GT (10:05)
[2017-09-03] MEDS ORDERED: VALP250S23 GT (10:05)
[2017-09-03] MEDS ORDERED: ESOM20CA31 GT (10:05)
[2017-09-03] MEDS ORDERED: ACET650S14 PR (10:05)
[2017-09-03] MEDS ORDERED: FAMO20 GT (10:05)
[2017-09-03] MEDS ORDERED: CHOL200016 GT (10:05)
[2017-09-03] MEDS ORDERED: CALCIUM CARB SUSP GT (10:05)
[2017-09-03] MEDS ORDERED: BACL10TA GT (10:05)
[2017-09-03] MEDS ORDERED: RIVA10 GT (10:05)
[2017-09-03] MEDS ORDERED: MULT-1119 GT (10:05)
[2017-09-03] MEDS ORDERED: ASCO500 GT (10:05)
[2017-09-03] MEDS ORDERED: BISA10SU22 PR (10:05)
[2017-09-03] MEDS ORDERED: LEVE500T53 GT (10:05)
[2017-09-03 10:35] LABS: BASOPHILS % (AUTO) 0.5 % (0.0-2.0); EOSINOPHILS % (AUTO) 2.9 % (1.0-6.0); HEMATOCRIT 47.3 % (36-46); HEMOGLOBIN 16.3 g/dL (12.0-16.0); LYMPHOCYTES # (AUTO) 2.4 K/uL (1.0-4.8); LYMPHOCYTES % (AUTO) 27.6 % (22.0-44.0); MEAN CORPUSCULAR HEMOGLOBIN 31.8 pg (26.0-34.0); MEAN CORPUSCULAR HGB CONC 34.5 G/dL (31.0-37.0); MEAN CORPUSCULAR VOLUME 92 fL (80-100); MONOCYTES # (AUTO) 1.1 K/uL (0.1-1.0); MONOCYTES % (AUTO) 12.5 % (2.0-9.0); NEUTROPHILS # (AUTO) 4.8 K/uL (1.8-7.7); NEUTROPHILS % (AUTO) 56.5 % (40.0-70.0); PLATELET COUNT (AUTO) 192 K/uL (150-450); RED BLOOD CELL COUNT(AUTO) 5.13 MIL/uL (4.00-5.20); RED CELL DISTRIBUTION WIDTH 13.4 % (11.5-14.5)
[2017-09-03 10:46] LABS: ANION GAP 7 mmol/L (8-16); CALCIUM, TOTAL 10.7 mg/dL (8.8-10.5); CARBON DIOXIDE 35 mmol/L (22-29); CHLORIDE 100 mmol/L (98-107); CREATININE 0.58 mg/dL (0.60-1.30); GLOMERULAR FILTR. RATE CALC > 60 mL/min (>60); GLUCOSE,RANDOM 95 mg/dL (70-110); PROTHROMBIN TIME 10.4 SEC (9.4-11.6); SODIUM SERUM 142 mmol/L (136-145); UREA NITROGEN, BLOOD 18 mg/dL (7-18)
[2017-09-03] MEDS ORDERED: DIATRIZOATE MEGLU/SOD 660/100 MG/ML 120 ML BOTTLE ONE (11:56)
[2017-09-03] MEDS ORDERED: LIDOCAINE HCL/PF 1% 30 ML VIAL ONE (11:58)
[2017-09-03 13:15] VITALS: BP 124/85
== END 2017-09-03 13:24 | disposition home or self-care (01) ==
LOC: EMS 09:07
DX: Z43.1 Encounter for attention to gastrostomy (principal); R53.81 Other malaise; J45.909 Unspecified asthma, uncomplicated; Z86.73 Personal history of transient ischemic attack (TIA), and cerebral infarction without residual deficits; Z88.0 Allergy status to penicillin; Z88.6 Allergy status to analgesic agent; Z88.1 Allergy status to other antibiotic agents; Z88.8 Allergy status to other drugs, medicaments and biological substances
CPT/HCPCS: 36415; 49446; 80048; 85025; 85610; 99284; J3490; Q9963

== ENCOUNTER → 2017-10-15 | Outpatient (CLI) | payer MEDICARE, MEDICAID ==
[~2017-10-15] MED LIST changes: +AMIN30LI28 GT; +ASCO500 GT; -AUD NEB; +BACL10TA GT; -BACL10TA PO; +BISA10SU22 PR; -CALC500O PEG; +CALCIUM CARB SUSP GT; +CHOL200016 GT; +DIGO-44 PO; -DIGO125T GT; +ESOM20CA31 GT; +FAMO20 GT; -FAMO20 PO; -FE PR; -FLUT16H NASAL; +GUAI118S10 PO; +HYDR25TA GT; -HYDR25TA PO; -K1015L GT; -LEVE500S2 GT; +LEVE500T53 GT; +METO25 GT; -METO25 PO; +MIRALAX GT; -MIRALAX PO; +MOM30 GT; -MOM30 PO; +MULT-1119 GT; -MULT-723 GT; -MULT240L12 GT; +OMEG-135 GT; +POTA20LI36 GT; -PRED20 PO; +RIVA10 GT; +SENN-175 GT; +TIZA2TAB4 GT; -TIZA4TAB4 PO; +VALP250S23 GT; -VALP250S5 PEG
[2017-10-15 12:11] VITALS: BP 123/78
== END | disposition home or self-care (01) ==
LOC: SRCNTR 12:09
PROVIDERS: ATTEND Internal Medicine Critical Care Medicine
DX: J45.21 Mild intermittent asthma with (acute) exacerbation (principal); F73 Profound intellectual disabilities; G82.50 Quadriplegia, unspecified; G80.9 Cerebral palsy, unspecified
CPT/HCPCS: G0463

== ENCOUNTER → 2018-01-03 | Outpatient (CLI) | payer MEDICARE, MEDICAID ==
[~2018-01-03] MED LIST changes: +IPRA3AMP24 NEB; -IPRA3AMP4 NEB
[2018-01-03 10:56] VITALS: BP 118/80
== END | disposition home or self-care (01) ==
LOC: SRCNTR 10:52
PROVIDERS: ATTEND Internal Medicine Critical Care Medicine
DX: J45.21 Mild intermittent asthma with (acute) exacerbation (principal); I11.0 Hypertensive heart disease with heart failure; I50.30 Unspecified diastolic (congestive) heart failure; E78.00 Pure hypercholesterolemia, unspecified; I25.10 Atherosclerotic heart disease of native coronary artery without angina pectoris; G82.50 Quadriplegia, unspecified; G80.9 Cerebral palsy, unspecified; F73 Profound intellectual disabilities
CPT/HCPCS: G0463

== ENCOUNTER 2018-03-06 18:35 | Inpatient (IN) | payer MEDICARE, MEDICAID ==
[~2018-03-06] VITALS: Ht 121.9 cm; Wt 48.1 kg
[~2018-03-06 18:35] MED LIST changes: -CHOL200016 GT; +CHOL200059 GT
[2018-03-06] MEDS ORDERED: SODIUM CHLORIDE 0.9% 1,000 ML IV ONE (20:00)
[2018-03-06] MEDS ORDERED: 0.9% SODIUM CHLORIDE 10 ML SYRINGE IVP PRN (20:00)
[2018-03-06] MEDS ORDERED: ACETAMINOPHEN 325 MG TABLET PO PRN (20:00)
[2018-03-06] MEDS ORDERED: ONDANSETRON HCL 4 MG/2 ML VIAL IVP PRN (20:00)
[2018-03-06 20:33] LABS: BASOPHILS % (AUTO) 0.5 % (0.0-2.0); EOSINOPHILS % (AUTO) 2.6 % (1.0-6.0); HEMATOCRIT 42.9 % (36-46); HEMOGLOBIN 14.9 g/dL (12.0-16.0); LYMPHOCYTES # (AUTO) 2.2 K/uL (1.0-4.8); LYMPHOCYTES % (AUTO) 20.3 % (22.0-44.0); MEAN CORPUSCULAR HEMOGLOBIN 31.8 pg (26.0-34.0); MEAN CORPUSCULAR HGB CONC 34.7 G/dL (31.0-37.0); MEAN CORPUSCULAR VOLUME 92 fL (80-100); MONOCYTES # (AUTO) 1.1 K/uL (0.1-1.0); MONOCYTES % (AUTO) 10.4 % (2.0-9.0); NEUTROPHILS # (AUTO) 7.2 K/uL (1.8-7.7); NEUTROPHILS % (AUTO) 66.2 % (40.0-70.0); PLATELET COUNT (AUTO) 223 K/uL (150-450); RED BLOOD CELL COUNT(AUTO) 4.68 MIL/uL (4.00-5.20); RED CELL DISTRIBUTION WIDTH 12.9 % (11.5-14.5)
[2018-03-06 20:44] LABS: ANION GAP 8 mmol/L (8-16); CARBON DIOXIDE 34 mmol/L (22-29); CHLORIDE 98 mmol/L (98-107); CREATININE 0.52 mg/dL (0.60-1.30); GLOMERULAR FILTR. RATE CALC > 60 mL/min (>60); GLUCOSE,RANDOM 90 mg/dL (70-110); POTASSIUM 3.8 mmol/L (3.5-5.1); SODIUM SERUM 140 mmol/L (136-145); UREA NITROGEN, BLOOD 17 mg/dL (7-18)
[2018-03-06 20:50] LABS: ALANINE AMINOTRANSFERASE 22 U/L (12-78); ALBUMIN 3.5 g/dL (3.4-5.0); ALKALINE PHOSPHATASE 107 U/L (46-116); ASPARTATE AMINOTRANSFERASE 19 U/L (15-37); BILIRUBIN,TOTAL 0.3 mg/dL (0.1-1.0); TOTAL PROTEIN, SERUM 7.6 g/dL (6.4-8.2)
[2018-03-06 22:43] VITALS: BP 133/91
[2018-03-07 04:35] VITALS: BP 155/87
[2018-03-07 08:30] VITALS: BP 136/94
[2018-03-07 11:15] VITALS: BP 148/80
[2018-03-07] MEDS: DEXTROSE 5%-0.45% SODIUM CHL 1,000 ML IV SCH (13:06)
[2018-03-07 15:35] VITALS: BP 142/84
[2018-03-07] MEDS ORDERED: PANTOPRAZOLE SODIUM 40 MG/VIAL IVP ONE (18:30)
[2018-03-07] MEDS ORDERED: IPRATROPIUM BROMIDE 0.5 MG/2.5 ML NEB SOLUTION NEB PRN (18:30)
[2018-03-07] MEDS ORDERED: ALBUTEROL SULFATE 2.5 MG/0.5 ML NEB SOLUTION NEB PRN (18:30)
[2018-03-07] MEDS ORDERED: HYDROCODONE/ACETAMINOPHEN 5-325 MG TABLET PO PRN (18:30)
[2018-03-07] MEDS ORDERED: LevETIRAcetam 1,000 MG in DEXTROSE 5%-WATER 100 ML IV ONE (18:30)
[2018-03-07] MEDS ORDERED: ONDANSETRON HCL 4 MG/2 ML VIAL IVP PRN (18:30)
[2018-03-07] MEDS ORDERED: BISACODYL 10 MG RECTAL RECTAL SUPPOSITORY PR PRN (18:30)
[2018-03-07] MEDS ORDERED: MORPHINE SULFATE 2 MG/ML SYRINGE IVP PRN (18:30)
[2018-03-07] MEDS ORDERED: MAGNESIUM HYDROXIDE SUSPENSION 30 ML UDCUP PO PRN (18:30)
[2018-03-07] MEDS ORDERED: ACETAMINOPHEN 325 MG TABLET PO PRN (18:30)
[2018-03-07] MEDS ORDERED: ZOLPIDEM TARTRATE 5 MG TABLET PO PRN (18:30)
[2018-03-07 19:35] VITALS: BP 130/73
[2018-03-07] MEDS: LevETIRAcetam 1,000 MG in DEXTROSE 5%-WATER 100 ML IV SCH (20:51)
[2018-03-07] MEDS: DOCUSATE SODIUM 100 MG CAPSULE PO SCH (21:00)
[2018-03-07] MEDS ORDERED: BUDESONIDE 0.5 MG/2 ML NEB SOLUTION NEB SCH (21:00)
[2018-03-07 23:53] VITALS: BP 137/77
[2018-03-08] MEDS: HEPARIN SODIUM,PORCINE 5,000 UNITS/ML VIAL SQ SCH ×3 (00:31→08:34)
[2018-03-08 04:43] VITALS: BP 135/86
[2018-03-08 06:21] LABS: PROTHROMBIN TIME 10.6 SEC (9.4-11.6)
[2018-03-08 07:50] VITALS: BP 159/99
[2018-03-08] MEDS: ALBUTEROL SULFATE 2.5 MG/0.5 ML NEB SOLUTION NEB SCH ×2 (08:16→12:21)
[2018-03-08] MEDS: IPRATROPIUM BROMIDE 0.5 MG/2.5 ML NEB SOLUTION NEB SCH ×2 (08:16→12:21)
[2018-03-08] MEDS: LevETIRAcetam 1,000 MG in DEXTROSE 5%-WATER 100 ML IV SCH (08:35)
[2018-03-08] MEDS: DOCUSATE SODIUM 100 MG CAPSULE PO SCH (08:36)
[2018-03-08] MEDS: DEXTROSE 5%-0.45% SODIUM CHL 1,000 ML IV SCH (08:48)
[2018-03-08] MEDS ORDERED: OLOPATADINE HCL 0.1% 5 ML OPHTHALMIC SOLUTION OU SCH (09:00)
[2018-03-08] MEDS ORDERED: PANTOPRAZOLE SODIUM 40 MG/VIAL IVP SCH (09:00)
[2018-03-08] MEDS ORDERED: DIGOXIN 250 MCG/ML 2 ML AMP IVP SCH (09:00)
[2018-03-08] MEDS ORDERED: DIATRIZOATE MEGLU/SOD 660/100 MG/ML 120 ML BOTTLE ONE (09:07)
[2018-03-08] MEDS ORDERED: LIDOCAINE/PF 1% 5 ML VIAL ONE (09:09)
[2018-03-08 11:39] VITALS: BP 155/99
== END 2018-03-08 16:00 | disposition home or self-care (01) | DRG 393 ==
LOC: EMS 18:36 → 4E 21:00
PROVIDERS: ADMIT Hospitalist; ATTEND Hospitalist
PROC: 0DH67UZ Insertion of Feeding Device into Stomach, Via Natural or Artificial Opening (ICD-10-PCS; principal; 2018-03-08)
DX: Z43.1 Encounter for attention to gastrostomy (principal); G80.0 Spastic quadriplegic cerebral palsy; G24.9 Dystonia, unspecified; H54.8 Legal blindness, as defined in USA; J45.909 Unspecified asthma, uncomplicated; E86.0 Dehydration; Q02 Microcephaly; Z82.3 Family history of stroke; Z86.73 Personal history of transient ischemic attack (TIA), and cerebral infarction without residual deficits; Z87.01 Personal history of pneumonia (recurrent); Z88.8 Allergy status to other drugs, medicaments and biological substances; Z88.1 Allergy status to other antibiotic agents; Z88.6 Allergy status to analgesic agent; Z79.899 Other long term (current) drug therapy
CPT/HCPCS: 43246; 76000; 87081; 94640; 99285; C9113; J0712; J1160; J1644; J3490; J7030; J7060

== ENCOUNTER → 2018-04-15 | Outpatient (CLI) | payer MEDICARE, MEDICAID ==
[~2018-04-15] MED LIST changes: -SENN-175 GT; +SENN-176 GT
[2018-04-15 15:09] VITALS: BP 156/98
== END | disposition home or self-care (01) ==
LOC: SRCNTR 15:01
PROVIDERS: ATTEND Internal Medicine Critical Care Medicine
DX: J18.9 Pneumonia, unspecified organism (principal); J98.11 Atelectasis; G80.9 Cerebral palsy, unspecified; G82.50 Quadriplegia, unspecified; J45.21 Mild intermittent asthma with (acute) exacerbation; I50.30 Unspecified diastolic (congestive) heart failure; F73 Profound intellectual disabilities
CPT/HCPCS: G0463

== ENCOUNTER 2018-05-21 19:52 | Inpatient (IN) | payer MEDICARE, MEDICAID ==
[~2018-05-21] VITALS: Ht 121.9 cm; Wt 47.6 kg
[~2018-05-21 19:52] MED LIST changes: -DIGO-44 PO
[2018-05-21 21:34] LABS: BASOPHILS % (AUTO) 0.5 % (0.0-2.0); HEMATOCRIT 45.3 % (36-46); HEMOGLOBIN 15.5 g/dL (12.0-16.0); LYMPHOCYTES # (AUTO) 2.3 K/uL (1.0-4.8); MEAN CORPUSCULAR HEMOGLOBIN 31.5 pg (26.0-34.0); MEAN CORPUSCULAR HGB CONC 34.2 G/dL (31.0-37.0); MEAN CORPUSCULAR VOLUME 92 fL (80-100); MONOCYTES # (AUTO) 0.8 K/uL (0.1-1.0); MONOCYTES % (AUTO) 9.2 % (2.0-9.0); NEUTROPHILS # (AUTO) 5.2 K/uL (1.8-7.7); NEUTROPHILS % (AUTO) 61.3 % (40.0-70.0); PLATELET COUNT (AUTO) 218 K/uL (150-450); RED BLOOD CELL COUNT(AUTO) 4.91 MIL/uL (4.00-5.20); RED CELL DISTRIBUTION WIDTH 13.7 % (11.5-14.5)
[2018-05-21 21:47] LABS: ANION GAP 3 mmol/L (8-16); CALCIUM, TOTAL 10.4 mg/dL (8.8-10.5); CARBON DIOXIDE 40 mmol/L (22-29); CHLORIDE 95 mmol/L (98-107); CREATININE 0.52 mg/dL (0.60-1.30); GLOMERULAR FILTR. RATE CALC > 60 mL/min (>60); GLUCOSE,RANDOM 79 mg/dL (70-110); POTASSIUM 3.9 mmol/L (3.5-5.1); SODIUM SERUM 138 mmol/L (136-145); UREA NITROGEN, BLOOD 17 mg/dL (7-18)
[2018-05-21 21:55] LABS: LACTIC ACID 1.6 mmol/L (0.4-2.0)
[2018-05-21] MEDS ORDERED: ACETAMINOPHEN 325 MG TABLET PO PRN ×2 (22:00→22:15)
[2018-05-21] MEDS ORDERED: ONDANSETRON HCL 4 MG/2 ML VIAL IVP PRN ×2 (22:00→22:15)
[2018-05-21] MEDS ORDERED: 0.9% SODIUM CHLORIDE 10 ML SYRINGE IVP PRN (22:00)
[2018-05-21] MEDS ORDERED: POTASSIUM CHL 20 MEQ/D5-0.45NS 1,000 ML IV ONE ×2 (22:00→22:15)
[2018-05-21 22:02] LABS: ALANINE AMINOTRANSFERASE 27 U/L (12-78); ALBUMIN 3.9 g/dL (3.4-5.0); ALKALINE PHOSPHATASE 124 U/L (46-116); ASPARTATE AMINOTRANSFERASE 22 U/L (15-37); BILIRUBIN,TOTAL 0.4 mg/dL (0.1-1.0); LIPASE 283 U/L (73-393)
[2018-05-21] MEDS ORDERED: ZOLPIDEM TARTRATE 5 MG TABLET PO PRN (22:15)
[2018-05-21] MEDS ORDERED: HYDROCODONE/ACETAMINOPHEN 5-325 MG TABLET PO PRN (22:15)
[2018-05-21] MEDS ORDERED: MORPHINE SULFATE 4 MG/ML SYRINGE IVP PRN (22:15)
[2018-05-21] MEDS ORDERED: BISACODYL 10 MG RECTAL RECTAL SUPPOSITORY PR PRN (22:15)
[2018-05-21] MEDS ORDERED: MAGNESIUM HYDROXIDE SUSPENSION 30 ML UDCUP PO PRN (22:15)
[2018-05-21] MEDS ORDERED: SODIUM CHLORIDE 0.9% 1,000 ML IV ONE (22:15)
[2018-05-21] MEDS ORDERED: ENALAPRILAT DIHYDRATE 1.25 MG/ML VIAL IVP PRN (22:15)
[2018-05-21] MEDS: LevETIRAcetam 500 MG in DEXTROSE 5%-WATER 100 ML IV SCH (22:44)
[2018-05-21] MEDS: HEPARIN SODIUM,PORCINE 5,000 UNITS/ML VIAL SQ SCH (23:41)
[2018-05-22 03:25] LABS: APPEARANCE,URINE CLOUDY (CLEAR); BILIRUBIN,URINE NEGATIVE (NEGATIVE); GLUCOSE, URINE (UA) NEGATIVE (NEGATIVE); KETONES,URINE NEGATIVE (NEGATIVE); LEUKOCYTE ESTERASE ,URINE NEGATIVE (NEGATIVE); NITRATE,URINE NEGATIVE (NEGATIVE); OCCULT BLOOD,URINE NEGATIVE (NEGATIVE); PH,URINE 7.5 (5.0-8.0); PROTEIN,URINE NEGATIVE (NEGATIVE); UROBILINOGEN,URINE 0.2 mg/dL (<=1.0)
[2018-05-22 03:31] LABS: BACTERIA,URINE None Seen /HPF (None Seen); SQUAMOUS EPITHELIAL CELL,UR Rare /LPF (None Seen); WBC,URINE 0-2 /HPF (0-5)
[2018-05-22] MEDS: HEPARIN SODIUM,PORCINE 5,000 UNITS/ML VIAL SQ SCH ×2 (07:29→16:50)
[2018-05-22] MEDS ORDERED: DOCUSATE SODIUM 100 MG CAPSULE PO SCH (09:00)
[2018-05-22] MEDS ORDERED: PANTOPRAZOLE SODIUM 40 MG DR TABLET PO SCH (09:00)
[2018-05-22 09:32] VITALS: BP 133/91
[2018-05-22] MEDS: LevETIRAcetam 500 MG in DEXTROSE 5%-WATER 100 ML IV SCH (10:38)
[2018-05-22 11:05] VITALS: BP 142/77
[2018-05-22] MEDS ORDERED: DIATRIZOATE MEGLU/SOD 660/100 MG/ML 120 ML BOTTLE ONE (11:08)
[2018-05-22 16:03] VITALS: BP 150/79
== END 2018-05-22 17:20 | disposition home or self-care (01) | DRG 393 ==
LOC: EMS 19:53 → 6N 05-22 03:30
PROVIDERS: ADMIT Internal Medicine; ATTEND Internal Medicine
PROC: 0D20XUZ Change Feeding Device in Upper Intestinal Tract, External Approach (ICD-10-PCS; principal; 2018-05-22)
DX: K94.23 Gastrostomy malfunction (principal); G82.50 Quadriplegia, unspecified; I10 Essential (primary) hypertension; R56.9 Unspecified convulsions; J45.909 Unspecified asthma, uncomplicated; H54.8 Legal blindness, as defined in USA; R62.50 Unspecified lack of expected normal physiological development in childhood; Y83.8 Other surgical procedures as the cause of abnormal reaction of the patient, or of later complication, without mention of misadventure at the time of the procedure; Y82.8 Other medical devices associated with adverse incidents; K21.9 Gastro-esophageal reflux disease without esophagitis; Z88.1 Allergy status to other antibiotic agents; Z88.5 Allergy status to narcotic agent; Z88.8 Allergy status to other drugs, medicaments and biological substances; Z86.73 Personal history of transient ischemic attack (TIA), and cerebral infarction without residual deficits; Z87.01 Personal history of pneumonia (recurrent)
CPT/HCPCS: 36245; 49450; 76000; 83605; 87081; G0378; J0712; J1644; J7030; J7060

== ENCOUNTER → 2018-06-05 | Outpatient (CLI) | payer MEDICARE, MEDICAID ==
[~2018-06-05] MED LIST changes: +FLUT16H NASAL
[2018-06-05 13:27] VITALS: BP 127/92
== END | disposition home or self-care (01) ==
LOC: SRCNTR 13:21
PROVIDERS: ATTEND Internal Medicine Critical Care Medicine
DX: J45.21 Mild intermittent asthma with (acute) exacerbation (principal); J18.9 Pneumonia, unspecified organism; J98.11 Atelectasis; G80.9 Cerebral palsy, unspecified; I50.30 Unspecified diastolic (congestive) heart failure; F73 Profound intellectual disabilities
CPT/HCPCS: G0463

== ENCOUNTER 2018-07-15 07:32 | Emergency (ER) | payer MEDICARE ==
[~2018-07-15] VITALS: Ht 121.9 cm; Wt 46.2 kg
[~2018-07-15 07:32] MED LIST changes: -GUAI118S10 PO
[2018-07-15] MEDS ORDERED: LIDOCAINE/PF 1% 5 ML VIAL ONE (07:44)
[2018-07-15] MEDS ORDERED: DIATRIZOATE MEGLU/SOD 660/100 MG/ML 120 ML BOTTLE ONE (07:45)
[2018-07-15 08:27] LABS: BASOPHILS % (AUTO) 0.3 % (0.0-2.0); EOSINOPHILS % (AUTO) 3.5 % (1.0-6.0); HEMOGLOBIN 15.6 g/dL (12.0-16.0); LYMPHOCYTES # (AUTO) 2.3 K/uL (1.0-4.8); LYMPHOCYTES % (AUTO) 27.9 % (22.0-44.0); MEAN CORPUSCULAR HEMOGLOBIN 31.3 pg (26.0-34.0); MEAN CORPUSCULAR HGB CONC 33.8 G/dL (31.0-37.0); MEAN CORPUSCULAR VOLUME 93 fL (80-100); MONOCYTES # (AUTO) 0.9 K/uL (0.1-1.0); MONOCYTES % (AUTO) 10.9 % (2.0-9.0); NEUTROPHILS # (AUTO) 4.7 K/uL (1.8-7.7); NEUTROPHILS % (AUTO) 57.4 % (40.0-70.0); PLATELET COUNT (AUTO) 194 K/uL (150-450); RED BLOOD CELL COUNT(AUTO) 4.97 MIL/uL (4.00-5.20); RED CELL DISTRIBUTION WIDTH 13.2 % (11.5-14.5)
[2018-07-15 08:31] LABS: PROTHROMBIN TIME 10.3 SEC (9.4-11.6)
[2018-07-15 12:30] VITALS: BP 155/94
== END 2018-07-15 13:01 | disposition home or self-care (01) ==
LOC: EMS 07:33
DX: K94.23 Gastrostomy malfunction (principal); J45.909 Unspecified asthma, uncomplicated; Z79.899 Other long term (current) drug therapy; Z88.6 Allergy status to analgesic agent; Z88.8 Allergy status to other drugs, medicaments and biological substances; Z88.1 Allergy status to other antibiotic agents; Z86.73 Personal history of transient ischemic attack (TIA), and cerebral infarction without residual deficits
CPT/HCPCS: 36415; 49450; 76000; 85025; 85610; 85730; 99284; C1769; J3490; Q9963

== ENCOUNTER 2018-08-07 08:05 | Emergency (ER) | payer MEDICARE ==
[~2018-08-07] VITALS: Ht 121.9 cm; Wt 47.2 kg
[2018-08-07] MEDS ORDERED: DIATRIZOATE MEGLU/SOD 660/100 MG/ML 120 ML BOTTLE ONE (08:18)
[2018-08-07] MEDS ORDERED: MULT-723 GT (08:30)
[2018-08-07] MEDS ORDERED: AMIN30LI28 PO (08:30)
[2018-08-07] MEDS ORDERED: RIVA10 PO (08:30)
[2018-08-07] MEDS ORDERED: POLY8.5P PO (08:30)
[2018-08-07] MEDS ORDERED: IPRNEB IH (08:30)
[2018-08-07 09:15] VITALS: BP 124/84
== END 2018-08-07 10:40 | disposition home or self-care (01) ==
LOC: EMS 08:07
DX: K94.23 Gastrostomy malfunction (principal); J45.909 Unspecified asthma, uncomplicated; Z88.6 Allergy status to analgesic agent; Z88.1 Allergy status to other antibiotic agents; Z88.8 Allergy status to other drugs, medicaments and biological substances; Z79.899 Other long term (current) drug therapy; Z86.73 Personal history of transient ischemic attack (TIA), and cerebral infarction without residual deficits; Y73.2 Prosthetic and other implants, materials and accessory gastroenterology and urology devices associated with adverse incidents
CPT/HCPCS: 74018; 99283; Q9963

== ENCOUNTER → 2018-08-09 | Outpatient (CLI) | payer MEDICARE ==
[~2018-08-09] MED LIST changes: -ACET650S14 PR; -AMIN30LI28 GT; +AMIN30LI28 PO; -BISA10SU22 PR; -ESOM20CA31 GT; -IPRA3AMP24 NEB; +IPRNEB IH; +LEVO500T2 PEG; -MIRALAX GT; +MONT10TA21 PO; -MULT-1119 GT; +MULT-723 GT; +OSEL75 PO; +POLY8.5P PO; -POTA20LI36 GT; +POTA20LI36 PO; +PRED10TA3 GT; +PSEU30TA31 PO; -RIVA10 GT; +RIVA10 PO; +TIZA4TAB4 GT
[2018-08-09 14:57] VITALS: BP 131/86
== END | disposition home or self-care (01) ==
LOC: SRCNTR 14:25
PROVIDERS: ATTEND Internal Medicine Critical Care Medicine
DX: J45.21 Mild intermittent asthma with (acute) exacerbation (principal); I50.9 Heart failure, unspecified; F73 Profound intellectual disabilities; G80.9 Cerebral palsy, unspecified
CPT/HCPCS: G0463

== ENCOUNTER 2018-09-03 15:47 | Inpatient (IN) | payer MEDICARE, MEDICAID ==
[~2018-09-03] VITALS: Ht 144.8 cm; Wt 55.5 kg
[~2018-09-03 15:47] MED LIST changes: -FLUT16H NASAL; -MONT10TA21 PO; -OSEL75 PO; -POTA20LI36 PO; -PSEU30TA31 PO; -TIZA4TAB4 GT
[2018-09-03] MEDS ORDERED: SODIUM CHLORIDE 0.9% 1,350 ML IV ONE (16:04)
[2018-09-03] MEDS ORDERED: ACETAMINOPHEN 1000 MG/ISO-OSM 100 ML IV ONE (16:15)
[2018-09-03] MEDS ORDERED: 0.9% SODIUM CHLORIDE 10 ML SYRINGE IVP PRN ×2 (16:15→19:00)
[2018-09-03] MEDS ORDERED: POTA20LI36 PO (16:22)
[2018-09-03] MEDS ORDERED: POLY8.5P PO (16:22)
[2018-09-03] MEDS ORDERED: RIVA10 PO (16:22)
[2018-09-03] MEDS ORDERED: AMIN30LI28 PO (16:22)
[2018-09-03] MEDS ORDERED: PSEU30TA31 PO (16:22)
[2018-09-03] MEDS ORDERED: MONT10TA21 PO (16:22)
[2018-09-03] MEDS ORDERED: FLUT16H NASAL (16:22)
[2018-09-03] MEDS ORDERED: OSEL75 PO (16:22)
[2018-09-03 16:57] LABS: BASOPHILS % (AUTO) 0.4 % (0.0-2.0); EOSINOPHILS % (AUTO) 1.1 % (1.0-6.0); HEMATOCRIT 41.2 % (36-46); LYMPHOCYTES # (AUTO) 1.5 K/uL (1.0-4.8); LYMPHOCYTES % (AUTO) 11.8 % (22.0-44.0); MEAN CORPUSCULAR HEMOGLOBIN 31.3 pg (26.0-34.0); MEAN CORPUSCULAR HGB CONC 33.9 G/dL (31.0-37.0); MEAN CORPUSCULAR VOLUME 92 fL (80-100); MONOCYTES # (AUTO) 1.3 K/uL (0.1-1.0); MONOCYTES % (AUTO) 10.4 % (2.0-9.0); NEUTROPHILS # (AUTO) 9.5 K/uL (1.8-7.7); NEUTROPHILS % (AUTO) 76.3 % (40.0-70.0); PLATELET COUNT (AUTO) 139 K/uL (150-450); RED BLOOD CELL COUNT(AUTO) 4.48 MIL/uL (4.00-5.20); RED CELL DISTRIBUTION WIDTH 13.9 % (11.5-14.5)
[2018-09-03 17:04] LABS: APPEARANCE,URINE CLEAR (CLEAR); BILIRUBIN,URINE NEGATIVE (NEGATIVE); GLUCOSE, URINE (UA) NEGATIVE (NEGATIVE); KETONES,URINE NEGATIVE (NEGATIVE); LEUKOCYTE ESTERASE ,URINE NEGATIVE (NEGATIVE); NITRATE,URINE NEGATIVE (NEGATIVE); OCCULT BLOOD,URINE TRACE (NEGATIVE); PH,URINE 7.5 (5.0-8.0); PROTEIN,URINE NEGATIVE (NEGATIVE)
[2018-09-03 17:13] LABS: PROTHROMBIN TIME 10.4 SEC (9.4-11.6)
[2018-09-03 17:14] LABS: LACTIC ACID 1.3 mmol/L (0.4-2.0)
[2018-09-03 17:18] LABS: ANION GAP 7 mmol/L (8-16); CALCIUM, TOTAL 9.6 mg/dL (8.8-10.5); CARBON DIOXIDE 34 mmol/L (22-29); CHLORIDE 98 mmol/L (98-107); CREATININE 0.46 mg/dL (0.60-1.30); GLOMERULAR FILTR. RATE CALC > 60 mL/min (>60); GLUCOSE,RANDOM 122 mg/dL (70-110); POTASSIUM 3.5 mmol/L (3.5-5.1); SODIUM SERUM 139 mmol/L (136-145); UREA NITROGEN, BLOOD 14 mg/dL (7-18)
[2018-09-03 17:23] LABS: ALANINE AMINOTRANSFERASE 22 U/L (12-78); ALKALINE PHOSPHATASE 82 U/L (46-116); ASPARTATE AMINOTRANSFERASE 23 U/L (15-37); BILIRUBIN,TOTAL 0.5 mg/dL (0.1-1.0); TOTAL PROTEIN, SERUM 6.6 g/dL (6.4-8.2)
[2018-09-03 17:24] LABS: RBC,URINE 0-2 /HPF (0-2); WBC,URINE 0-2 /HPF (0-5)
[2018-09-03 17:25] LABS: BACTERIA,URINE None Seen /HPF (None Seen); SQUAMOUS EPITHELIAL CELL,UR Rare /LPF (None Seen)
[2018-09-03 17:34] LABS: B-TYPE NATRIURETIC PEPTIDE 30 pg/mL (0-100)
[2018-09-03 17:39] LABS: INFLUENZA TYPE A POSITIVE FOR TYPE A (NEGATIVE); INFLUENZA TYPE B NEGATIVE FOR TYPE B (NEGATIVE)
[2018-09-03] MEDS ORDERED: LEVOFLOXACIN 750 MG/D5% WATER 150 ML IV ONE (17:45)
[2018-09-03] MEDS ORDERED: TIZA4TAB4 GT (17:48)
[2018-09-03] MEDS ORDERED: OSELTAMIVIR PHOSPHATE 6 MG/ML 5 ML SUSPENSION ORAL.SYG PEG ONE (18:45)
[2018-09-03] MEDS ORDERED: ACETAMINOPHEN 325 MG TABLET PO PRN ×2 (19:00→20:15)
[2018-09-03] MEDS ORDERED: IPRATROPIUM BROMIDE 0.5 MG/2.5 ML NEB SOLUTION NEB SCH (19:00)
[2018-09-03] MEDS ORDERED: ALBUTEROL SULFATE 2.5 MG/0.5 ML NEB SOLUTION NEB SCH (19:00)
[2018-09-03] MEDS ORDERED: ONDANSETRON HCL 4 MG/2 ML VIAL IVP PRN ×2 (19:00→20:15)
[2018-09-03] MEDS ORDERED: MAGNESIUM HYDROXIDE SUSPENSION 30 ML UDCUP PO PRN (20:15)
[2018-09-03] MEDS ORDERED: ZOLPIDEM TARTRATE 5 MG TABLET PO PRN (20:15)
[2018-09-03] MEDS ORDERED: MORPHINE SULFATE 2 MG/ML SYRINGE IVP PRN (20:15)
[2018-09-03] MEDS ORDERED: BISACODYL 10 MG RECTAL RECTAL SUPPOSITORY PR PRN (20:15)
[2018-09-03] MEDS ORDERED: OxyCODONE HCL/ACETAMINOPHEN 5-325 MG TABLET PO PRN (20:15)
[2018-09-03] MEDS ORDERED: MAGNESIUM HYDROXIDE SUSPENSION 30 ML UDCUP GT PRN (20:36)
[2018-09-03] MEDS ORDERED: ZOLPIDEM TARTRATE 5 MG TABLET GT PRN (20:36)
[2018-09-03] MEDS ORDERED: OxyCODONE HCL/ACETAMINOPHEN 5-325 MG TABLET GT PRN (20:37)
[2018-09-03] MEDS ORDERED: VALPROIC ACID 250 MG/5 ML SYRUP UDCUP GT SCH (21:00)
[2018-09-03] MEDS ORDERED: BUDESONIDE 0.5 MG/2 ML NEB SOLUTION NEB SCH (21:00)
[2018-09-03] MEDS ORDERED: BACLOFEN 10 MG TABLET GT SCH (21:00)
[2018-09-03] MEDS ORDERED: METOPROLOL TARTRATE 25 MG TABLET GT SCH (21:00)
[2018-09-03] MEDS ORDERED: AMINO ACIDS/PROTEIN HYDROLYS 30 ML TUBE PO SCH (21:00)
[2018-09-03] MEDS ORDERED: SENNOSIDES 8.8 MG/5 ML SYRUP ORAL.SYG GT SCH (21:00)
[2018-09-03] MEDS ORDERED: FLUTICASONE PROPIONATE 50 MCG/SPRAY 16 GM NASAL SPRAY NASAL SCH (21:00)
[2018-09-03] MEDS ORDERED: FAMOTIDINE 20 MG TABLET GT SCH (21:00)
[2018-09-03] MEDS ORDERED: TiZANidine HCL 4 MG TABLET GT SCH (21:00)
[2018-09-03] MEDS ORDERED: OMEGA-3/DHA/EPA/FISH OIL 1,000 MG CAPSULE GT SCH (21:00)
[2018-09-03] MEDS ORDERED: LevETIRAcetam 100 MG/ML 5 ML SOLUTION UDCUP GT SCH (21:00)
[2018-09-04] MEDS: IPRATROPIUM BROMIDE 0.5 MG/2.5 ML NEB SOLUTION NEB PRN ×2 (03:26→20:58)
[2018-09-04] MEDS: ALBUTEROL SULFATE 2.5 MG/0.5 ML NEB SOLUTION NEB PRN ×2 (03:26→20:58)
[2018-09-04 06:09] LABS: BASOPHILS % (AUTO) 0.2 % (0.0-2.0); EOSINOPHILS % (AUTO) 2.2 % (1.0-6.0); HEMATOCRIT 38.4 % (36-46); HEMOGLOBIN 12.9 g/dL (12.0-16.0); LYMPHOCYTES # (AUTO) 0.9 K/uL (1.0-4.8); LYMPHOCYTES % (AUTO) 11.5 % (22.0-44.0); MEAN CORPUSCULAR HEMOGLOBIN 31.4 pg (26.0-34.0); MEAN CORPUSCULAR HGB CONC 33.5 G/dL (31.0-37.0); MEAN CORPUSCULAR VOLUME 94 fL (80-100); MONOCYTES # (AUTO) 1.1 K/uL (0.1-1.0); MONOCYTES % (AUTO) 14.1 % (2.0-9.0); NEUTROPHILS # (AUTO) 5.5 K/uL (1.8-7.7); PLATELET COUNT (AUTO) 118 K/uL (150-450); RED CELL DISTRIBUTION WIDTH 13.8 % (11.5-14.5)
[2018-09-04] MEDS ORDERED: ACETAMINOPHEN 650 MG/20.3 ML SOLUTION UDCUP GT PRN (06:10)
[2018-09-04 06:25] LABS: ALANINE AMINOTRANSFERASE 26 U/L (12-78); ALBUMIN 2.7 g/dL (3.4-5.0); ALKALINE PHOSPHATASE 70 U/L (46-116); ANION GAP 4 mmol/L (8-16); ASPARTATE AMINOTRANSFERASE 30 U/L (15-37); BILIRUBIN,TOTAL 0.4 mg/dL (0.1-1.0); CALCIUM, TOTAL 9.8 mg/dL (8.8-10.5); CARBON DIOXIDE 33 mmol/L (22-29); CHLORIDE 105 mmol/L (98-107); CREATININE 0.44 mg/dL (0.60-1.30); GLOMERULAR FILTR. RATE CALC > 60 mL/min (>60); GLUCOSE,RANDOM 91 mg/dL (70-110); POTASSIUM 3.9 mmol/L (3.5-5.1); SODIUM SERUM 142 mmol/L (136-145); TOTAL PROTEIN, SERUM 5.9 g/dL (6.4-8.2); UREA NITROGEN, BLOOD 10 mg/dL (7-18)
[2018-09-04] MEDS ORDERED: AMINO ACIDS/PROTEIN HYDROLYS 30 ML TUBE GT SCH (08:00)
[2018-09-04 08:19] VITALS: BP 132/65
[2018-09-04] MEDS: LevETIRAcetam 100 MG/ML 5 ML SOLUTION UDCUP GT SCH ×2 (08:55→20:26)
[2018-09-04] MEDS: OMEGA-3/DHA/EPA/FISH OIL 1,000 MG CAPSULE GT SCH ×2 (08:56→20:26)
[2018-09-04] MEDS: FAMOTIDINE 20 MG TABLET GT SCH ×2 (08:56→20:26)
[2018-09-04] MEDS: TiZANidine HCL 4 MG TABLET GT SCH ×2 (08:56→20:25)
[2018-09-04] MEDS: VALPROIC ACID 250 MG/5 ML SYRUP UDCUP GT SCH ×2 (08:56→20:26)
[2018-09-04] MEDS: OSELTAMIVIR PHOSPHATE 75 MG CAPSULE GT SCH ×2 (08:56→20:26)
[2018-09-04] MEDS: CHOLECALCIFEROL (VIT D3) 1,000 UNITS TABLET GT SCH (08:56)
[2018-09-04] MEDS: METOPROLOL TARTRATE 25 MG TABLET GT SCH ×3 (08:56→20:26)
[2018-09-04] MEDS: SENNOSIDES 8.8 MG/5 ML SYRUP ORAL.SYG GT SCH ×2 (08:57→20:25)
[2018-09-04] MEDS: BACLOFEN 10 MG TABLET GT SCH ×4 (08:57→20:25)
[2018-09-04] MEDS: ASCORBIC ACID 500 MG TABLET GT SCH (08:57)
[2018-09-04] MEDS: FLUTICASONE PROPIONATE 50 MCG/SPRAY 16 GM NASAL SPRAY NASAL SCH ×2 (08:57→20:25)
[2018-09-04] MEDS ORDERED: HYDROCHLOROTHIAZIDE 25 MG TABLET GT SCH (09:00)
[2018-09-04] MEDS: SODIUM CHLORIDE 0.9% 1,000 ML IV SCH (10:09)
[2018-09-04 11:29] VITALS: BP 108/54
[2018-09-04] MEDS: BUDESONIDE 0.5 MG/2 ML NEB SOLUTION NEB SCH ×2 (11:54→21:09)
[2018-09-04 15:54] VITALS: BP 113/73
[2018-09-04] MEDS: RIVAROXABAN 10 MG TABLET GT SCH (17:23)
[2018-09-04 20:15] VITALS: BP 134/79
[2018-09-05 00:09] VITALS: BP 103/55
[2018-09-05 04:09] VITALS: BP 105/58
[2018-09-05 07:18] VITALS: BP 135/68
[2018-09-05] MEDS: AMINO ACIDS/PROTEIN HYDROLYS 30 ML TUBE GT SCH ×2 (08:00→09:00)
[2018-09-05] MEDS: BUDESONIDE 0.5 MG/2 ML NEB SOLUTION NEB SCH ×2 (08:05→21:01)
[2018-09-05] MEDS: IPRATROPIUM BROMIDE 0.5 MG/2.5 ML NEB SOLUTION NEB PRN (08:05)
[2018-09-05] MEDS: ALBUTEROL SULFATE 2.5 MG/0.5 ML NEB SOLUTION NEB PRN (08:06)
[2018-09-05] MEDS: LevETIRAcetam 100 MG/ML 5 ML SOLUTION UDCUP GT SCH ×2 (08:52→21:44)
[2018-09-05] MEDS: VALPROIC ACID 250 MG/5 ML SYRUP UDCUP GT SCH ×2 (08:53→21:44)
[2018-09-05] MEDS: TiZANidine HCL 4 MG TABLET GT SCH ×2 (08:54→21:43)
[2018-09-05] MEDS: SENNOSIDES 8.8 MG/5 ML SYRUP ORAL.SYG GT SCH ×2 (08:54→21:40)
[2018-09-05] MEDS: CHOLECALCIFEROL (VIT D3) 1,000 UNITS TABLET GT SCH (08:56)
[2018-09-05] MEDS: ASCORBIC ACID 500 MG TABLET GT SCH (08:56)
[2018-09-05] MEDS: OMEGA-3/DHA/EPA/FISH OIL 1,000 MG CAPSULE GT SCH ×2 (08:57→21:42)
[2018-09-05] MEDS: FAMOTIDINE 20 MG TABLET GT SCH ×2 (08:58→21:39)
[2018-09-05] MEDS: METOPROLOL TARTRATE 25 MG TABLET GT SCH ×3 (09:00→21:39)
[2018-09-05] MEDS: BACLOFEN 10 MG TABLET GT SCH ×4 (09:01→21:43)
[2018-09-05] MEDS: OSELTAMIVIR PHOSPHATE 75 MG CAPSULE GT SCH ×2 (09:02→21:44)
[2018-09-05] MEDS: FLUTICASONE PROPIONATE 50 MCG/SPRAY 16 GM NASAL SPRAY NASAL SCH ×2 (09:06→21:42)
[2018-09-05] MEDS: SODIUM CHLORIDE 0.9% 1,000 ML IV SCH ×2 (10:20→22:04)
[2018-09-05 11:36] VITALS: BP 90/58
[2018-09-05 15:24] VITALS: BP 118/78
[2018-09-05] MEDS: RIVAROXABAN 10 MG TABLET GT SCH (18:44)
[2018-09-05 20:30] VITALS: BP 157/86
[2018-09-06] VITALS (8 sets, daily range): BP systolic 92–146; BP diastolic 56–90
[2018-09-06] MEDS: BUDESONIDE 0.5 MG/2 ML NEB SOLUTION NEB SCH ×2 (08:03→21:20)
[2018-09-06] MEDS: LevETIRAcetam 100 MG/ML 5 ML SOLUTION UDCUP GT SCH ×2 (08:36→22:07)
[2018-09-06] MEDS: SENNOSIDES 8.8 MG/5 ML SYRUP ORAL.SYG GT SCH ×2 (08:36→22:07)
[2018-09-06] MEDS: BACLOFEN 10 MG TABLET GT SCH ×4 (08:38→22:08)
[2018-09-06] MEDS: ASCORBIC ACID 500 MG TABLET GT SCH (08:39)
[2018-09-06] MEDS: CHOLECALCIFEROL (VIT D3) 1,000 UNITS TABLET GT SCH (08:39)
[2018-09-06] MEDS: OSELTAMIVIR PHOSPHATE 75 MG CAPSULE GT SCH ×2 (08:39→22:08)
[2018-09-06] MEDS: FAMOTIDINE 20 MG TABLET GT SCH ×2 (08:41→22:06)
[2018-09-06] MEDS: METOPROLOL TARTRATE 25 MG TABLET GT SCH ×3 (08:41→22:06)
[2018-09-06] MEDS: TiZANidine HCL 4 MG TABLET GT SCH ×2 (08:44→22:08)
[2018-09-06] MEDS: FLUTICASONE PROPIONATE 50 MCG/SPRAY 16 GM NASAL SPRAY NASAL SCH ×2 (08:45→22:06)
[2018-09-06] MEDS: OMEGA-3/DHA/EPA/FISH OIL 1,000 MG CAPSULE GT SCH ×2 (08:46→22:08)
[2018-09-06] MEDS: VALPROIC ACID 250 MG/5 ML SYRUP UDCUP GT SCH ×2 (08:47→22:07)
[2018-09-06] MEDS: AMINO ACIDS/PROTEIN HYDROLYS 30 ML TUBE GT SCH (09:00)
[2018-09-06] MEDS: SODIUM CHLORIDE 0.9% 1,000 ML IV SCH ×3 (11:18→23:43)
[2018-09-06] MEDS: ALBUTEROL SULFATE 2.5 MG/0.5 ML NEB SOLUTION NEB PRN (16:07)
[2018-09-06] MEDS: IPRATROPIUM BROMIDE 0.5 MG/2.5 ML NEB SOLUTION NEB PRN (16:07)
[2018-09-06] MEDS: RIVAROXABAN 10 MG TABLET GT SCH (17:53)
[2018-09-07 04:24] VITALS: BP 105/74
[2018-09-07] MEDS: BUDESONIDE 0.5 MG/2 ML NEB SOLUTION NEB SCH ×2 (08:15→20:02)
[2018-09-07 08:32] VITALS: BP 133/89
[2018-09-07] MEDS: METOPROLOL TARTRATE 25 MG TABLET GT SCH ×3 (09:34→21:40)
[2018-09-07] MEDS: FLUTICASONE PROPIONATE 50 MCG/SPRAY 16 GM NASAL SPRAY NASAL SCH ×2 (09:34→21:39)
[2018-09-07] MEDS: CHOLECALCIFEROL (VIT D3) 1,000 UNITS TABLET GT SCH (09:34)
[2018-09-07] MEDS: FAMOTIDINE 20 MG TABLET GT SCH ×2 (09:34→21:40)
[2018-09-07] MEDS: VALPROIC ACID 250 MG/5 ML SYRUP UDCUP GT SCH ×2 (09:34→21:41)
[2018-09-07] MEDS: SENNOSIDES 8.8 MG/5 ML SYRUP ORAL.SYG GT SCH ×2 (09:34→21:40)
[2018-09-07] MEDS: OSELTAMIVIR PHOSPHATE 75 MG CAPSULE GT SCH ×2 (09:34→21:41)
[2018-09-07] MEDS: LevETIRAcetam 100 MG/ML 5 ML SOLUTION UDCUP GT SCH ×2 (09:34→21:41)
[2018-09-07] MEDS: BACLOFEN 10 MG TABLET GT SCH ×4 (09:35→22:04)
[2018-09-07] MEDS: OMEGA-3/DHA/EPA/FISH OIL 1,000 MG CAPSULE GT SCH ×2 (09:35→21:40)
[2018-09-07] MEDS: TiZANidine HCL 4 MG TABLET GT SCH ×2 (09:35→21:41)
[2018-09-07] MEDS: ASCORBIC ACID 500 MG TABLET GT SCH (09:35)
[2018-09-07 11:50] VITALS: BP 90/50
[2018-09-07] MEDS: SODIUM CHLORIDE 0.9% 1,000 ML IV SCH (13:32)
[2018-09-07 15:37] LABS: BASOPHILS % (AUTO) 0.5 % (0.0-2.0); EOSINOPHILS % (AUTO) 3.5 % (1.0-6.0); HEMATOCRIT 34.4 % (36-46); HEMOGLOBIN 11.5 g/dL (12.0-16.0); LYMPHOCYTES # (AUTO) 1.5 K/uL (1.0-4.8); LYMPHOCYTES % (AUTO) 19.4 % (22.0-44.0); MEAN CORPUSCULAR HEMOGLOBIN 31.5 pg (26.0-34.0); MEAN CORPUSCULAR HGB CONC 33.4 G/dL (31.0-37.0); MEAN CORPUSCULAR VOLUME 94 fL (80-100); MONOCYTES # (AUTO) 0.7 K/uL (0.1-1.0); MONOCYTES % (AUTO) 8.2 % (2.0-9.0); NEUTROPHILS # (AUTO) 5.4 K/uL (1.8-7.7); NEUTROPHILS % (AUTO) 68.4 % (40.0-70.0); PLATELET COUNT (AUTO) 117 K/uL (150-450); RED BLOOD CELL COUNT(AUTO) 3.66 MIL/uL (4.00-5.20); RED CELL DISTRIBUTION WIDTH 13.9 % (11.5-14.5)
[2018-09-07 15:58] LABS: ANION GAP 6 mmol/L (8-16); CALCIUM, TOTAL 9.5 mg/dL (8.8-10.5); CARBON DIOXIDE 33 mmol/L (22-29); CHLORIDE 107 mmol/L (98-107); CREATININE 0.32 mg/dL (0.60-1.30); GLOMERULAR FILTR. RATE CALC > 60 mL/min (>60); GLUCOSE,RANDOM 89 mg/dL (70-110); POTASSIUM 3.8 mmol/L (3.5-5.1); SODIUM SERUM 146 mmol/L (136-145); UREA NITROGEN, BLOOD 5 mg/dL (7-18)
[2018-09-07 16:04] LABS: ALANINE AMINOTRANSFERASE 18 U/L (12-78); ALBUMIN 2.7 g/dL (3.4-5.0); ALKALINE PHOSPHATASE 66 U/L (46-116); ASPARTATE AMINOTRANSFERASE 15 U/L (15-37); BILIRUBIN,TOTAL 0.3 mg/dL (0.1-1.0); TOTAL PROTEIN, SERUM 6.2 g/dL (6.4-8.2)
[2018-09-07] MEDS: RIVAROXABAN 10 MG TABLET GT SCH (17:10)
[2018-09-07 20:07] VITALS: BP 98/56
[2018-09-08 00:50] VITALS: BP 112/66
[2018-09-08] MEDS: SODIUM CHLORIDE 0.9% 1,000 ML IV SCH (01:15)
[2018-09-08 04:13] VITALS: BP 122/77
[2018-09-08 07:44] VITALS: BP 124/81
[2018-09-08] MEDS: CHOLECALCIFEROL (VIT D3) 1,000 UNITS TABLET GT SCH (08:33)
[2018-09-08] MEDS: FLUTICASONE PROPIONATE 50 MCG/SPRAY 16 GM NASAL SPRAY NASAL SCH (08:33)
[2018-09-08] MEDS: FAMOTIDINE 20 MG TABLET GT SCH (08:33)
[2018-09-08] MEDS: METOPROLOL TARTRATE 25 MG TABLET GT SCH (08:33)
[2018-09-08] MEDS: VALPROIC ACID 250 MG/5 ML SYRUP UDCUP GT SCH (08:34)
[2018-09-08] MEDS: SENNOSIDES 8.8 MG/5 ML SYRUP ORAL.SYG GT SCH (08:34)
[2018-09-08] MEDS: LevETIRAcetam 100 MG/ML 5 ML SOLUTION UDCUP GT SCH (08:34)
[2018-09-08] MEDS: OMEGA-3/DHA/EPA/FISH OIL 1,000 MG CAPSULE GT SCH (08:35)
[2018-09-08] MEDS: OSELTAMIVIR PHOSPHATE 75 MG CAPSULE GT SCH (08:35)
[2018-09-08] MEDS: TiZANidine HCL 4 MG TABLET GT SCH (08:36)
[2018-09-08] MEDS: BUDESONIDE 0.5 MG/2 ML NEB SOLUTION NEB SCH (08:36)
[2018-09-08] MEDS: BACLOFEN 10 MG TABLET GT SCH ×2 (08:37→13:53)
[2018-09-08] MEDS: ASCORBIC ACID 500 MG TABLET GT SCH (08:41)
[2018-09-08 11:53] VITALS: BP 115/61
== END 2018-09-08 14:29 | disposition home or self-care (01) | DRG 871 ==
LOC: EMS 15:48 → 5N 09-04 05:30
PROVIDERS: ADMIT Internal Medicine; ATTEND Internal Medicine
DX: A41.89 Other specified sepsis (principal); G82.50 Quadriplegia, unspecified; G40.909 Epilepsy, unspecified, not intractable, without status epilepticus; K21.9 Gastro-esophageal reflux disease without esophagitis; F79 Unspecified intellectual disabilities; Z86.73 Personal history of transient ischemic attack (TIA), and cerebral infarction without residual deficits; K59.00 Constipation, unspecified; D69.6 Thrombocytopenia, unspecified; H54.8 Legal blindness, as defined in USA; J45.909 Unspecified asthma, uncomplicated; Z79.01 Long term (current) use of anticoagulants; Z88.0 Allergy status to penicillin; Z88.1 Allergy status to other antibiotic agents; Z88.6 Allergy status to analgesic agent; Z93.1 Gastrostomy status; J09.X2 Influenza due to identified novel influenza A virus with other respiratory manifestations
CPT/HCPCS: 51702; 83605; 84145; 87040; 87804; 93005; 94640; 96365; 96366; 96367; G0378; J0131; J1956; J7030

== ENCOUNTER → 2018-10-10 | Outpatient (CLI) | payer MEDICARE, MEDICAID ==
[~2018-10-10] MED LIST changes: +AUD NEB; +CLIN300C9 PO; +FLUT16H NASAL; +LEVO250 GT; -LEVO500T2 PEG; +MONT10TA21 PO; +POTA20LI36 PO; +PRED10 GT; -PRED10TA3 GT; +PRED20 GT; +PRED5 GT; +PSEU30TA31 PO; -TIZA2TAB4 GT; +TIZA4TAB4 GT
[2018-10-10 16:06] VITALS: BP 122/99
== END | disposition home or self-care (01) ==
LOC: SRCNTR 13:51
PROVIDERS: ATTEND Internal Medicine Critical Care Medicine
DX: I48.91 Unspecified atrial fibrillation (principal); G80.9 Cerebral palsy, unspecified; J45.21 Mild intermittent asthma with (acute) exacerbation; F73 Profound intellectual disabilities; I50.30 Unspecified diastolic (congestive) heart failure; J98.11 Atelectasis
CPT/HCPCS: G0463

== ENCOUNTER 2018-11-07 07:48 | Emergency (ER) | payer MEDICARE, MEDICAID ==
[~2018-11-07] VITALS: Ht 121.9 cm; Wt 45.0 kg
[2018-11-07] MEDS ORDERED: DIATRIZOATE MEGLU/SOD 660/100 MG/ML 120 ML BOTTLE ONE (12:33)
[2018-11-07 14:23] VITALS: BP 122/68
== END 2018-11-07 14:59 | disposition home or self-care (01) ==
LOC: EMS 07:50
DX: K94.23 Gastrostomy malfunction (principal); J45.909 Unspecified asthma, uncomplicated; Z86.73 Personal history of transient ischemic attack (TIA), and cerebral infarction without residual deficits; Z88.6 Allergy status to analgesic agent; Z88.1 Allergy status to other antibiotic agents
CPT/HCPCS: 49440; 99284; C1769; Q9963

== ENCOUNTER 2019-05-25 14:27 | Emergency (ER) | payer MEDICARE, MEDICAID ==
[~2019-05-25] VITALS: Ht 121.9 cm; Wt 48.1 kg
[~2019-05-25 14:27] MED LIST changes: -CLIN300C9 PO; -FLUT16H NASAL; -LEVO250 GT; -PRED10 GT; -PRED20 GT; -PRED5 GT; -PSEU30TA31 PO; -TIZA4TAB4 GT; +TIZA4TAB6 GT
[2019-05-25 15:08] VITALS: BP 120/61
[2019-05-25] MEDS ORDERED: BARIUM SULFATE 0.1% SUSPENSION 450 ML BOTTLE GT ONE (15:15)
[2019-05-25] MEDS ORDERED: BARIUM SULFATE 0.1% SUSPENSION 450 ML BOTTLE PO ONE (16:15)
== END 2019-05-25 18:03 | disposition home or self-care (01) ==
LOC: EMS 14:30
DX: Z43.1 Encounter for attention to gastrostomy (principal); J45.909 Unspecified asthma, uncomplicated; Z86.73 Personal history of transient ischemic attack (TIA), and cerebral infarction without residual deficits; Z98.890 Other specified postprocedural states; Z79.899 Other long term (current) drug therapy; Z88.1 Allergy status to other antibiotic agents; Z88.6 Allergy status to analgesic agent; Z88.8 Allergy status to other drugs, medicaments and biological substances
CPT/HCPCS: 74018